=== PATIENT | male | born 1965 | race Caucasian/White ===

== ENCOUNTER → 2017-05-18 | Outpatient (CLI) | payer BC, MEDICARE ==
[2017-05-18 14:08] VITALS: BP 161/102; PULSE 99; RESP 16
--- NOTE | 2017-05-18 14:35 | P.PN ---
Progress Note - Text Progress Note Date: 05/18/17 Patient returns for followup for chronic back pain with radiation to LLE. Patient previously underwent lumbar RFA bilateral in 2016 with excellent relief. He then underwent hip surgery with Dr. Rushing and has had pain from his low back radiating down his left leg but stopping in his calf. Patient continues on no regular medications for pain. Patient denies adverse drug effects from medications. Today, pt denies new-onset weakness, bowel/bladder incontinence, or any other signs or symptoms of cauda equina syndrome. There are no signs of acute intoxication, and no indications of medication diversion or overuse. In addition to above, 13-point review of systems is also negative for chest pain , shortness of breath, changes in vision, changes in hearing, new onset weakness , abdominal pain, diarrhea, extreme fatigue, malaise, fever, skin changes, homicidal or suicidal ideation, or bowel or bladder incontinence. Vital Signs: Reviewed in EMR Gen: WDWN, AAOx3, NAD HEENT: NCAT, EOMI, hearing grossly normal Pulm: resp unlabored Abd: soft, NT, ND Neck: supple, trachea midline ROM in flexion lumbar spine: full ROM in extension lumbar spine: reduced Lumbar paravertebral tenderness: + Facet loading: + L side SI joint tenderness: neg Pedro's test: neg Straight leg raise: + LLE at 15 degrees Neuro: CN II-XII grossly intact, muscle strength lower extremities PRESERVED Imaging: Reviewed in EMR Assessment: 1. hip OA s/p JUAN 2. lumbar radiculitis 3. lumbar spondylosis Plan: 1. Explanation: Opioid and psychological risk scores were reviewed. Diagnoses , prognoses, and multiple treatment options including but not limited to physical therapy, interventional therapies, adjuvant medical therapies, narcotic medication therapies, and surgery were discussed with the patient and all questions were answered to the patient's satisfaction. 2. Opioid agreement: Patient has previously signed narcotic agreement, and was orally counseled to not overuse, abuse, divert, or cell medications, and to take them as prescribed by only 1 healthcare provider. The patient was also counseled to store opioid medications in a safe and preferably locked location. Patient was also counseled against driving or operating heavy equipment while using narcotic medications and also to not use alcohol or any illicit or recreational drugs. The patient verbalized understanding that lack of compliance with any of the above and likely result in failure to renew narcotic prescriptions, possible discharge from the clinic, and possible legal ramifications thereafter if indicated. 3. Counseling: The patient was counseled extensively on BODY MASS INDEX, EXERCISE. Specifically, the patient was instructed regarding the importance of weight control, and exercise in the context of both chronic pain and overall health. 4. Procedures: LESI series (likely L4-L5, but will check MRI) 5. Consultations: None 6. Investigations: MRI lumbar spine without contrast 7. Medications: none prescribed 8. Disposition: f/u for procedure as scheduled PQRS measures: 1-Patient's medications are documented in the chart. 2-Tobacco use is negative 3-Patient has not had a pneumococcal vaccine. 4-Advanced care planning discussed, patient unable to give. 5-Opioid contract NOT signed with the patient. 6-Pain positive, follow-up visit or procedure scheduled 7-Patient's blood pressure measured and documented, and patient will follow up with the primary care due to hypertension. 8-Patient's weight was measured, and body mass index ABOVE the normal limits, and counseling was done. Patient instructed to follow up with PCP. 9-Patient WAS NOT identified as an unhealthy alcohol user.
== END | disposition home or self-care (01) ==
LOC: PNWHC3 13:45
PROVIDERS: ATTEND Anesthesiology
DX: G89.29 Other chronic pain (principal); M47.26 Other spondylosis with radiculopathy, lumbar region; M16.9 Osteoarthritis of hip, unspecified; Z96.649 Presence of unspecified artificial hip joint
CPT/HCPCS: 99211

== ENCOUNTER → 2017-06-03 | Outpatient (CLI) | payer MEDICARE ==
--- NOTE | 2017-06-03 10:23 | MR ---
EXAMINATION TYPE: MR lumbar spine wo con DATE OF EXAM: 06/03/2017 COMPARISON: 04/10/2015 HISTORY: Lumbar radiculopathy TECHNIQUE: T1 and T2 axial and sagittal images of the lumbar spine are submitted. FINDINGS: There is no abnormal signal seen within the visualized spinal cord or paraspinal soft tissu es. At L1-2 there is no disc herniation or canal stenosis. No foraminal encroachment At L2-3 there is mild facet arthropathy. No disc herniation or canal stenosis. No foraminal encroachm ent. At L3-4 there is broad-based central disc bulging with mild effacement of thecal sac. Mild hypertroph ic change of the facets and mild effacement of thecal sac. Bilateral mild foraminal encroachment. At L4-5 there is discogenic marrow changes and degenerative disc disease with broad-based central dis c protrusion resulting in mild to moderate effacement of thecal sac and mild central stenosis. Facet arthropathy and ligamentum flavum hypertrophy contribute. There is mild bilateral foraminal encroachm ent. At L5-S1 there is degenerative disc disease with discogenic marrow changes. Central disc bulging appe ars to be stable and capped by spur. Mild to moderate bilateral foraminal encroachment. Facet arthrop athy noted. IMPRESSION: 1. Multilevel degenerative disc disease with disc protrusion centrally and paracentrally to the right L4-L5 resulting in mild spinal stenosis and bilateral foraminal encroachment. 2. Disc bulging L3-L4 with mild bilateral foraminal encroachment and mild effacement of thecal sac. 3. Stable disc bulging and degenerative disc disease L5-S1 with bilateral foraminal encroachment.
== END | disposition home or self-care (01) ==
LOC: RADMRIMAIN 08:44
PROVIDERS: ATTEND Anesthesiology
DX: M48.061 Spinal stenosis, lumbar region without neurogenic claudication (principal); M51.17 Intervertebral disc disorders with radiculopathy, lumbosacral region
CPT/HCPCS: 72148

== ENCOUNTER 2017-06-16 08:31 | Day surgery (SDC) | payer MEDICARE ==
[2017-06-14 14:46] VITALS: BMI 35.4
[2017-06-16 09:09] VITALS: TEMP 97.6
[2017-06-16 09:16] LABS: Glucose,Whole Blood 148 mg/dL (75-99)
[2017-06-16] MEDS: LACTATED RINGERS 1,000 ML IV SCH ×2 (09:16→09:30)
--- NOTE | 2017-06-16 09:47 | P.PCN ---
Date of Procedure: 06/16/17 Procedure(s) Performed: PREOPERATIVE DIAGNOSIS: 1- Lumbar Degenerative Disc Diseases 2-Lumbar spondylosis with Facet arthropathy without myelopathy. 3-lumbar radiculopathy. POSTOPERATIVE DIAGNOSIS: 1-Lumber Degenerative Disc Diseases 2-Lumbar spondylosis with Facet arthropathy without myelopathy. 3-lumbar radiculopathy. PROCEDURE 1. Lumbar epidural steroid injection under fluoroscopic guidance at the L5-S1 level. 2. Lumbar epidurogram. ANESTHESIA: Local with 1% lidocaine 3 ml and , moderate sedation with intravenous Versed 2 mg ,and fentanyle 50 Mcg EBL: Minimal PROCEDURE INDICATION: The patient with low back pain and radiculitis symptoms unresponsive to conservative treatment. Fluoroscopy was used to optimize visualization of the needle placement and to maximize safety. PROCEDURE DESCRIPTION / TECHNIQUE: The patient was seen and identified in the preoperative area. Risks, benefits , complications including but not limited to infections ,bleeding ,allergic reaction to the medications ,nerve damage and not complete pain releife , and alternatives were discussed with the patient. The patient agreed to proceed with the procedure and signed the consent. IV was started, and vital signs were stable. Patient was taken to the OR and time out was completed. The patient was placed in the prone position on procedure table and a pillow was placed under the abdomen to reduce lumbar lordosis. The lumbosacral area was prepped and draped in the usual sterile fashion.ere closely monitored during the procedure. Conscious sedation was used during the procedure to decrease patients anxiety. Vital signs was monitered during the entire procedure. Using anterior-posterior fluoroscopy, the L5-S1 interlaminar space was identified and the skin over this site was marked and then infiltrated with 1% lidocaine subcutaneously. Subsequently, a 20-gauge Tuohy epidural needle was inserted and advanced toward the epidural space using the ``Loss of resistance technique and guided by AP and lateral fluoroscopy. The correct needle position in the epidural space was verified with the injection of 2 mL of the water soluble contrast dye Omnipaque 180 contrast and observing an excellent epidurogram with the epidural spread of the dye, after negative aspiration for blood and CSF and in the absence of paresthesias. Again after negative aspiration, a 6 ml mixture containing 40 mg of Depomedrol, and 2 ml of preservative free Normal Saline, and 2 ml of preservative free lidocaine 1% solution was injected and a washout of epidurogram was seen. Needle was withdrawn intact, skin was cleansed, and bandages were applied. COMPLICATIONS: None DISPOSITION / PLANS: The patient was placed in a supine position and transferred to the recovery area in a stable condition for observation. There was no evidence of lower extremity motor or sensory deficit after the procedure. Patient was discharged from the recovery room after meeting discharge criteria. Home discharge instructions were given to the patient by the staff. The patient was reexamined prior to discharge. The patient will schedule a follow up in the clinic in 2-4 weeks.
[2017-06-16 09:56] VITALS: RESP 16
--- NOTE | 2017-06-16 10:03 | FL ---
Fluoroscopy INDICATION: Pain FINDINGS: Fluoroscopy time: 7 seconds. Images obtained: 1. IMPRESSIONS: 1. Documentation of fluoroscopy.
[2017-06-16 10:10] VITALS: BP 135/89; PULSE 76
[2017-06-16] MEDS ORDERED: IV FLUID CONTINUATION 1,000 ML IV ONE (10:10)
== END 2017-06-16 10:13 | disposition home or self-care (01) ==
LOC: ORPAIN 08:31
PROVIDERS: ATTEND Specialist
DX: M51.16 Intervertebral disc disorders with radiculopathy, lumbar region (principal); M47.26 Other spondylosis with radiculopathy, lumbar region
CPT/HCPCS: 62323; J2250; J1030; Q9965; J3010

== ENCOUNTER 2017-07-13 08:25 | Day surgery (SDC) | payer MEDICARE ==
[2017-07-08 16:33] VITALS: BMI 35.4
[~2017-07-13 08:25] MED LIST: LACTATED RINGERS 1,000 ML IV SCH
[2017-07-13 09:34] VITALS: RESP 16; TEMP 97.8
[2017-07-13 10:05] LABS: Glucose,Whole Blood 258 mg/dL (75-99)
[2017-07-13] MEDS ORDERED: INSULIN ASPART 100 UNIT/ML 1 ML 10 ML VIAL SQ ONE (10:06)
--- NOTE | 2017-07-13 10:25 | P.PCN ---
Date of Procedure: 07/13/17 Procedure(s) Performed: PREOPERATIVE DIAGNOSIS: 1- Lumbar Degenerative Disc Diseases 2-Lumbar spondylosis with Facet arthropathy without myelopathy POSTOPERATIVE DIAGNOSIS: 1-Lumber Degenerative Disc Diseases 2-Lumbar spondylosis with Facet arthropathy without myelopathy PROCEDURE 1. Lumbar epidural steroid injection under fluoroscopic guidance at the L4-5 level. 2. Lumbar epidurogram. ANESTHESIA: Local with 1% lidocaine 3 ml and , moderate sedation with intravenous Versed 2 mg ,and fentanyle 50 Mcg EBL: Minimal PROCEDURE INDICATION: The patient with low back pain and radiculitis symptoms unresponsive to conservative treatment. Fluoroscopy was used to optimize visualization of the needle placement and to maximize safety. PROCEDURE DESCRIPTION / TECHNIQUE: The patient was seen and identified in the preoperative area. Risks, benefits , complications including but not limited to infections ,bleeding ,allergic reaction to the medications ,nerve damage and not complete pain releife , and alternatives were discussed with the patient. The patient agreed to proceed with the procedure and signed the consent. IV was started, and vital signs were stable. Patient was taken to the OR and time out was completed. The patient was placed in the prone position on procedure table and a pillow was placed under the abdomen to reduce lumbar lordosis. The lumbosacral area was prepped and draped in the usual sterile fashion.ere closely monitored during the procedure. Conscious sedation was used during the procedure to decrease patients anxiety. Vital signs was monitered during the entire procedure. Using anterior-posterior fluoroscopy, the L4-5 interlaminar space was identified and the skin over this site was marked and then infiltrated with 1% lidocaine subcutaneously. Subsequently, a 20-gauge Tuohy epidural needle was inserted and advanced toward the epidural space using the ``Loss of resistance technique and guided by AP and lateral fluoroscopy. The correct needle position in the epidural space was verified with the injection of 2 mL of the water soluble contrast dye Omnipaque 180 contrast and observing an excellent epidurogram with the epidural spread of the dye, after negative aspiration for blood and CSF and in the absence of paresthesias. Again after negative aspiration, a 6 ml mixture containing 40 mg kenalog , and 2 ml of preservative free Normal Saline, and 2 ml of preservative free lidocaine 1% solution was injected and a washout of epidurogram was seen. Needle was withdrawn intact, skin was cleansed, and bandages were applied. COMPLICATIONS: None DISPOSITION / PLANS: The patient was placed in a supine position and transferred to the recovery area in a stable condition for observation. There was no evidence of lower extremity motor or sensory deficit after the procedure. Patient was discharged from the recovery room after meeting discharge criteria. Home discharge instructions were given to the patient by the staff. The patient was reexamined prior to discharge. The patient will schedule a follow up in the clinic in 2-4 weeks.
--- NOTE | 2017-07-13 10:49 | FL ---
EXAMINATION TYPE: FL guided pain mgmt statistic DATE OF EXAM: 07/13/2017 CLINICAL HISTORY: Low back pain. TECHNIQUE: Fluoroscopy. COMPARISON: None. FINDINGS: Fluoroscopic guidance was provided during pain relief procedure performed by Dr. Elam . A total of 3 seconds of fluoroscopic time was utilized during the procedure and 1 spot intraoperat mariana image is acquired. Single image acquired shows needle localization at level of L4-L5 space with contrast injection. IMPRESSION: As Above.
[2017-07-13 11:10] VITALS: PULSE 79
[2017-07-13 11:11] VITALS: BP 130/86
[2017-07-13] MEDS ORDERED: IV FLUID CONTINUATION 1,000 ML IV ONE (11:11)
== END 2017-07-13 11:25 | disposition home or self-care (01) ==
LOC: ORPAIN 08:25
PROVIDERS: ATTEND Specialist
DX: M51.16 Intervertebral disc disorders with radiculopathy, lumbar region (principal); M47.26 Other spondylosis with radiculopathy, lumbar region; I10 Essential (primary) hypertension; J45.909 Unspecified asthma, uncomplicated; E11.9 Type 2 diabetes mellitus without complications
CPT/HCPCS: 62323; J2250; J3301; Q9965; J3010

== ENCOUNTER → 2017-08-16 | Outpatient (CLI) | payer MEDICARE ==
[2017-08-16 13:29] VITALS: BP 142/94; PULSE 104; RESP 18
--- NOTE | 2017-08-16 13:53 | P.PN ---
Progress Note - Text Progress Note Date: 08/16/17 Progress Note - Text Progress Note Date: 05/18/17 Patient returns for followup for chronic back pain with radiation to LLE. Patient previously underwent lumbar RFA bilateral in 2016 with excellent relief. Patient has had minimal relief with lumbar epidural steroid injections , I discussed with him potential doing bilateral transforaminal epidural steroid injections however patient states that when his benefit in the most was the radiofrequency ablations of his lumbar spine. He states that his pain in his lumbar spine was 0-1 out of 10 in severity for greater than 12 months after his bilateral radiofrequency ablation. I discussed with him that since it has been over 2 years since his RFA it would be bilateral medial branch blocks in order to assure that his low back pain is still secondary to facet arthropathy. Patient understands and wishes to proceed in this manner. He still being prescribed Arnot from his primary care doctor. Patient denies adverse drug effects from medications. Today, pt denies new-onset weakness, bowel/bladder incontinence, or any other signs or symptoms of cauda equina syndrome. There are no signs of acute intoxication, and no indications of medication diversion or overuse. In addition to above, 13-point review of systems is also negative for chest pain , shortness of breath, changes in vision, changes in hearing, new onset weakness , abdominal pain, diarrhea, extreme fatigue, malaise, fever, skin changes, homicidal or suicidal ideation, or bowel or bladder incontinence. Vital Signs: Reviewed in EMR Gen: WDWN, AAOx3, NAD HEENT: NCAT, EOMI, hearing grossly normal Pulm: resp unlabored Abd: soft, NT, ND Neck: supple, trachea midline ROM in flexion lumbar spine: Limited secondary to pain ROM in extension lumbar spine: reduced Lumbar paravertebral tenderness: + Facet loading: ++ L side SI joint tenderness: neg Pedro's test: neg Straight leg raise: + LLE at 15 degrees Neuro: CN II-XII grossly intact, muscle strength lower extremities PRESERVED Imaging: Reviewed in EMR Assessment: 1. lumbar radiculopathy 2. lumbar spondylosis without myelopathy Plan: 1. Explanation: Opioid and psychological risk scores were reviewed. Diagnoses , prognoses, and multiple treatment options including but not limited to physical therapy, interventional therapies, adjuvant medical therapies, narcotic medication therapies, and surgery were discussed with the patient and all questions were answered to the patient's satisfaction. 2. Opioid agreement: Patient has previously signed narcotic agreement, and was orally counseled to not overuse, abuse, divert, or cell medications, and to take them as prescribed by only 1 healthcare provider. The patient was also counseled to store opioid medications in a safe and preferably locked location. Patient was also counseled against driving or operating heavy equipment while using narcotic medications and also to not use alcohol or any illicit or recreational drugs. The patient verbalized understanding that lack of compliance with any of the above and likely result in failure to renew narcotic prescriptions, possible discharge from the clinic, and possible legal ramifications thereafter if indicated. 3. Counseling: The patient was counseled extensively on BODY MASS INDEX, EXERCISE. Specifically, the patient was instructed regarding the importance of weight control, and exercise in the context of both chronic pain and overall health. 4. Procedures: Lumbar medial branch block bilateral L3 to S1. In the future consider doing bilateral transforaminal L5-S1 epidural steroid injections. 5. Consultations: None 6. Investigations: Lumbar MRI spine reviewed shows bilateral moderate L5-S1 neuroforaminal stenosis 7. Medications: none prescribed 8. Disposition: Bilateral lumbar medial branch block L3 to S1 PQRS measures: 1-Patient's medications are documented in the chart. 2-Tobacco use is negative 3-Patient has not had a pneumococcal vaccine. 4-Advanced care planning discussed, patient unable to give. 5-Opioid contract NOT signed with the patient. 6-Pain positive, follow-up visit or procedure scheduled 7-Patient's blood pressure measured and documented, and patient will follow up with the primary care due to hypertension. 8-Patient's weight was measured, and body mass index ABOVE the normal limits, and counseling was done. Patient instructed to follow up with PCP. 9-Patient WAS NOT identified as an unhealthy alcohol user.
== END | disposition home or self-care (01) ==
LOC: PNWHC3 12:52
PROVIDERS: ATTEND Anesthesiology
DX: G89.29 Other chronic pain (principal); M54.5 Low back pain; M47.26 Other spondylosis with radiculopathy, lumbar region
CPT/HCPCS: 99211

== ENCOUNTER 2017-08-22 08:56 | Day surgery (SDC) | payer MEDICARE ==
[2017-08-19 10:23] VITALS: BMI 35.4
[2017-08-22 10:47] VITALS: RESP 16; TEMP 97.7
[2017-08-22 10:52] LABS: Glucose,Whole Blood 229 mg/dL (75-99)
[2017-08-22] MEDS ORDERED: INSULIN ASPART 100 UNIT/ML 1 ML 10 ML VIAL SQ ONE (10:57)
--- NOTE | 2017-08-22 12:04 | P.PCN ---
Date of Procedure: 08/22/17 Procedure(s) Performed: PREOPERATIVE DIAGNOSIS : 1- Lumbar spondylosis with Facet Arthropathy without myelopathy . 2- Lumber radiculopathy POSTOPERATIVE DIAGNOSIS: 1- Lumbar spondylosis with Facet Arthropathy without myelopathy . 2- Lumber radiculopathy. PROCEDURE: Diagnostic bilateral L3 -4 , L4 -5 , and L5-S1 medial branch block under fluoroscopy ANESTHESIA: Local with 1% lidocaine 6 ml , moderate sedation with intravenous Versed 1 mg and Fentanyl 50 mcg. EBL: Minimal COMPLICATION: None. IV FLUIDS: 100 mL of normal saline. PROCEDURE INDICATION: Chronic low back pain secondary to Facet arthropathy unresponsive to conservative treatment. PROCEDURE DESCRIPTION: the patient was seen and identified in the preop holding area , risks and benefits and possible complications of the procedure and alternative were discussed with the patient, and the patient agreed to proceed with the procedure and signed the consent IV was started and vital signs monitored during the procedure and fluoroscopy was used to maximize the benefit and accuracy of the needle placement, and sedation was given to decrease patient anxiety, patient was taken to the procedure room and placed in prone position vital signs monitored in the back prepped with chlorhexidine X3 then under strict sterile technique using a right oblique fluoroscopy ,the junction of the transverse process and the superior articulating process of the right L3- 4 , L4- 5, and L5-S1 vertebra which corresponding to the fluoroscopy image of the eye of the Audie dog on the block side for the medial branches and subsequently , after local infiltration of skin and subcu tissuies with lidocaine 1% one mL at each level ,then 22- gauge Quincke-type needles , 3 needle was used , each one of them placed at the junction of the base of the transverse process and the superior articular process at the appropriate level, and the needle was advanced until the periosteum contacted, needle placement confirmed with AP oblique and lateral view and after appropriate needle placement confirmed, and after negative aspiration for heme and CSF and there was no paresthesia 1-1/2 mL of Marcaine 0.5% used , then half mL injected at each level after negative aspiration the needle subsequently removed and the same procedure repeated for the left side at left side at L3-4, L4- 5 and L5-S1 levels. At the end of the procedure and the needles removed and a bandage applied after the skin was cleaned the cleaning solution patient taken to recovery room in stable condition and monitors in the recovery room for 20-30 minutes and discharged home in stable condition after discharge criteria met and patient will follow up with the pain clinic in 2-4 weeks There was no steroid was used , for the procedure today
--- NOTE | 2017-08-22 12:13 | FL ---
EXAMINATION TYPE: FL guided pain mgmt statistic DATE OF EXAM: 08/22/2017 CLINICAL HISTORY: Low back pain. TECHNIQUE: Fluoroscopy. COMPARISON: None. FINDINGS: Fluoroscopic guidance was provided during pain relief procedure performed by Dr. Elam . A total of 7 seconds of fluoroscopic time was utilized during the procedure and 4 spot images are acquired. Images acquired shows needle localization at level of the lower lumbar spine. IMPRESSION: As Above.
[2017-08-22 12:28] LABS: Glucose,Whole Blood 199 mg/dL (75-99)
[2017-08-22 12:39] VITALS: BP 136/85; PULSE 94
[2017-08-22] MEDS ORDERED: IV FLUID CONTINUATION 1,000 ML IV ONE (12:40)
== END 2017-08-22 12:45 | disposition home or self-care (01) ==
LOC: ORPAIN 08:56
PROVIDERS: ATTEND Specialist
DX: M47.816 Spondylosis without myelopathy or radiculopathy, lumbar region (principal); G89.29 Other chronic pain; M47.26 Other spondylosis with radiculopathy, lumbar region; I10 Essential (primary) hypertension; J45.909 Unspecified asthma, uncomplicated; E11.9 Type 2 diabetes mellitus without complications
CPT/HCPCS: 64493; 64494; 64495; J2250; J3010; 99152

== ENCOUNTER 2017-09-13 06:36 | Day surgery (SDC) | payer MEDICARE ==
[2017-09-12 09:00] VITALS: BMI 35.4
[2017-09-13 07:38] LABS: Glucose,Whole Blood 263 mg/dL (75-99)
[2017-09-13 07:41] VITALS: RESP 16; TEMP 97.8
[2017-09-13] MEDS ORDERED: INSULIN ASPART 100 UNIT/ML 1 ML 10 ML VIAL SQ ONE (07:53)
--- NOTE | 2017-09-13 08:24 | P.PCN ---
Date of Procedure: 09/13/17 Procedure(s) Performed: PREOPERATIVE DIAGNOSIS : 1- Lumbar spondylosis with Facet Arthropathy without myelopathy . 2- Lumber degenerative disc disease POSTOPERATIVE DIAGNOSIS: 1- Lumbar spondylosis with Facet Arthropathy without myelopathy . 2- Lumber degenerative disc disease PROCEDURE: Diagnostic bilateral L3 -4 , L4 -5 , and L5-S1 medial branch block under fluoroscopy ANESTHESIA: Local with 1% lidocaine 6 ml , moderate sedation with intravenous Versed 1 mg and Fentanyl 50 mcg. EBL: Minimal COMPLICATION: None. IV FLUIDS: 100 mL of normal saline. PROCEDURE INDICATION: Chronic low back pain secondary to Facet arthropathy unresponsive to conservative treatment. PROCEDURE DESCRIPTION: the patient was seen and identified in the preop holding area , risks and benefits and possible complications of the procedure and alternative were discussed with the patient, and the patient agreed to proceed with the procedure and signed the consent IV was started and vital signs monitored during the procedure and fluoroscopy was used to maximize the benefit and accuracy of the needle placement, and sedation was given to decrease patient anxiety, patient was taken to the procedure room and placed in prone position vital signs monitored in the back prepped with chlorhexidine X3 then under strict sterile technique using a right oblique fluoroscopy ,the junction of the transverse process and the superior articulating process of the right L3- 4 , L4- 5, and L5-S1 vertebra which corresponding to the fluoroscopy image of the eye of the Audie dog on the block side for the medial branches and subsequently , after local infiltration of skin and subcu tissuies with lidocaine 1% one mL at each level ,then 22- gauge Quincke-type needles , 3 needle was used , each one of them placed at the junction of the base of the transverse process and the superior articular process at the appropriate level, and the needle was advanced until the periosteum contacted, needle placement confirmed with AP oblique and lateral view and after appropriate needle placement confirmed, and after negative aspiration for heme and CSF and there was no paresthesia 1-1/2 mL of Marcaine 0.5%used , then half mL injected at each level after negative aspiration the needle subsequently removed and the same procedure repeated for the left side at left side at L3-4, L4- 5 and L5-S1 levels. At the end of the procedure and the needles removed and a bandage applied after the skin was cleaned the cleaning solution patient taken to recovery room in stable condition and monitors in the recovery room for 20-30 minutes and discharged home in stable condition after discharge criteria met and patient will follow up with the pain clinic in 2-4 weeks I did not use any steroid for the procedures .
[2017-09-13] MEDS ORDERED: IV FLUID CONTINUATION 1,000 ML IV ONE (08:32)
--- NOTE | 2017-09-13 08:37 | FL ---
Fluoroscopy HISTORY: Pain 9 seconds fluoroscopy time supplied to the referring clinician. 4 intraoperative C-arm images docume nt the procedure. See dictated report from anesthesia.
[2017-09-13 08:38] LABS: Glucose,Whole Blood 251 mg/dL (75-99)
[2017-09-13 08:57] VITALS: BP 142/87; PULSE 69
== END 2017-09-13 09:08 | disposition home or self-care (01) ==
LOC: ORPAIN 06:36
PROVIDERS: ATTEND Specialist
DX: G89.29 Other chronic pain (principal); M47.816 Spondylosis without myelopathy or radiculopathy, lumbar region; I10 Essential (primary) hypertension; J45.909 Unspecified asthma, uncomplicated; K21.9 Gastro-esophageal reflux disease without esophagitis; E11.9 Type 2 diabetes mellitus without complications
CPT/HCPCS: 64493; 64494; 64495; J2250; J3010; 99152

== ENCOUNTER → 2017-10-18 | Outpatient (CLI) | payer MEDICARE ==
[2017-10-18 12:22] VITALS: BP 162/89; PULSE 102; RESP 16
--- NOTE | 2017-10-18 12:48 | P.PAINPG ---
Subjective Progress Note Date: 10/18/17 This is follow-up visit for this patient with a history of severe and chronic low back pain secondary to lumbar degenerative disc disease, lumbar facet arthropathy, We have done an interventional pain procedure diagnostic medial branch block lumbar area at L3-4 /L4 5/L5-S1 , on 2 different occasions he reported that his pain decreased from 8/10-0-2/10 after each block, and the pain relief lasted for 1-1/2 day after each injection The patient currently on Motrin 800 mg when necessary and Neurontin 100 mg 3 times a day Patient denies any side effect of the medication , patient denies any excessive drowsiness or sleepiness, patient denies any suicidal ideation, Patient reported that the current medication is helping to control the pain and improve the activity of daily livings, Patient denies any motor or sensory deficit, denies any change in the bowel movement or urination, patient denies any fever or night sweats. Objective - Vital Signs Vital signs: Vital Signs Temp Pulse 102 H 10/18/17 12:15 Resp 16 10/18/17 12:15 BP 162/89 10/18/17 12:15 Pulse Ox 98 10/18/17 12:15 Intake & Output 10/17/17 10/18/17 10/18/17 18:59 06:59 18:59 Weight 108.862 kg - Exam Physical Examinations : 1-Constitutiona : Cooperative , not in acute distress . 2-HEENT : nech ; supple , no Lymphadenopathy , normal thyroid size . eyes : no ptosis , no icterus , no photophobia . ENT : normal of hearing , normal oropharynx , no Thrush . 3- Respiratory : Chest clear to auscultations Bilaterally , no wheezing , no Rhonchi . 4- Cardiovascular : regular rate and rhythem , S1 , S2 , no S3 , no S4. 5- Gastrointestinal : abdomen soft no tenderness , bowel sounds , no organomegally . 6- Genitourinary : Defferred . 7- neurologic : Cranial nerve II to XII intact , no focal neurological deffecit . 8-psychatric : alert , oriented X 3 , appropriate affect , intact judgment and insight . 9-Lymphatic : no Lymphadenopathy . 10- musculoskeltal , Lumber spine = normal moter stegnth lower extremities ,thigh and legs .5/5 deep tendon reflexes : normal Knee Jerk , normal ankle Jerk . lumber facet Loading Test positive Assessment and Plan Plan: Assessment and plan= chronic low back pain secondary to lumbar degenerative disc disease , lumbar spondylosis with lumbar facet arthropathy . Patient had more than 70% decrease in his pain level after diagnostic medial branch block lumbar area He will be good candidate to have radiofrequency ablation of medial branch lumbar area and we will start with the radiofrequency ablation of the left- sided L3-4 /L4 5/L5-S1, and later on we will schedule him to have the right side , patient should continue his current medication Motrin 800 mg when necessary and Neurontin 100 mg 3 times a day , and he is getting prescription refills from his primary care Time with Patient: Less than 30 PQRS Measure Charge Sheet Measure #130: Documentation of Current Meds in Medical Chart: Patient's medications documented in chart Measure #226: Tobacco Use: Screen & Cessation Intervention: Pt not a tobacco user Measure #111: Pneumonia Vaccination: Pneumococcal vaccine NOT administered or previously given Measure #47: Advance Care Plan: Advance care planning discussed & documented, plan or surrogate given Measure #412: Opioid Treatment Agreement: No documentation of signed opioid treatment agreement Measure #408: Opioid Therapy Follow-up Evaluation: Patient had NO f/u eval minimum every 3 months during opioid therapy Measure #317: Preventitive Care & Scrn High Bld Press & F/U: Pre-hypertensive or hypertensive BP documented, pt will f/u with PCP Measure #128: Body Mass Index (BMI) Screening & Follow-up: BMI documented ABOVE normal parameters - f/u documented Measure #131: Pain Assessment & Follow-up: Pain positive & plan documented, Follow-up scheduled Measure #431: Unhealthy Alcohol Use Preventative Care & Scrn: Patient not identified as an unhealthy alcohol user PQRS Narrative: Smoking Status Former smoker Blood Pressure 162/89 Pain Intensity [Bilateral 4 Lower Back] Scale Used Numeric (1 - 10) Hx Alcohol Use (MH) Yes: OCCASIONAL. Home Medications: Ambulatory Orders Lisinopril [Zestril] 10 mg PO HS 11/13/13 Atorvastatin [Lipitor] 20 mg PO HS 03/19/15 Escitalopram Oxalate [Lexapro] 10 mg PO DAILY 03/19/15 Omeprazole [PriLOSEC] 20 mg PO AC-BRKFST PRN 03/19/15 Gabapentin [Neurontin] 100 mg PO TID 03/26/15 Ibuprofen [Advil] 800 mg PO DAILY PRN 05/18/17 Albuterol Inhaler [Ventolin Hfa Inhaler] 1 - 2 puff INHALATION Q6HR PRN Fluticasone/Salmeterol [Advair 250-50 Diskus] 1 each IH DAILY PRN 06/14/17 Insulin Glargine [Lantus] 45 unit SQ HS 06/14/17 Controlled Substance Measures - Controlled Substance Measures Is patient prescribed a controlled substance at discharge?: No When asked, does pt state using other controlled substances?: No If prescribed controlled substance>3 days was MAPS reviewed?: No If Rx opioid, was Start Talking consent form obtained?: No If opioid is for acute pain is fill amount 7 days or less?: No Was information provided regarding opioid addiction?: No
== END | disposition home or self-care (01) ==
LOC: PNWHC3 12:01
PROVIDERS: ATTEND Specialist
DX: G89.29 Other chronic pain (principal); M51.36 Other intervertebral disc degeneration, lumbar region; M47.816 Spondylosis without myelopathy or radiculopathy, lumbar region; M46.96 Unspecified inflammatory spondylopathy, lumbar region; Z87.891 Personal history of nicotine dependence; Z79.899 Other long term (current) drug therapy; Z79.1 Long term (current) use of non-steroidal anti-inflammatories (NSAID)
CPT/HCPCS: 99211

== ENCOUNTER 2017-11-08 06:20 | Day surgery (SDC) | payer MEDICARE ==
[2017-11-07 11:52] VITALS: BMI 35.4
[2017-11-08 07:23] VITALS: TEMP 97.6
[2017-11-08] MEDS ORDERED: LIDOCAINE 1% 20 ML VIAL (10MG/ML) FOR IV START INTRADERMA ONE (07:35)
[2017-11-08 07:41] LABS: Glucose,Whole Blood 262 mg/dL (75-99)
--- NOTE | 2017-11-08 08:03 | P.PCN ---
Date of Procedure: 11/08/17 Surgeon: Alex Bojorquez Pathology: none sent Condition: stable Disposition: PACU Description of Procedure: PREOPERATIVE DIAGNOSIS: Lumbar spondylosis without myelopathy, morbid obesity POSTOPERATIVE DIAGNOSIS: Lumbar spondylosis without myelopathy,morbid obesity PROCEDURES : Radiofrequency thermocoagulation,L2-4, L3-L4, L4-L5, and L5-S1 medial branch, with fluoroscopic guidance ANESTHESIA: IV moderate conscious sedation with versed and fentanyl and local infiltration with lidocaine 1% 5 ml EBL: Minimal PROCEDURE INDICATION: The patient with low back pain secondary to lumbar facet arthropathy who had more than 50% relief of her pain with previous diagnostic lumbar medial branch block with bupivacaine. PROCEDURE DESCRIPTION / TECHNIQUE: The patient was seen and identified in the preoperative area. Risks, benefits, complications, including but not limited to risk of infection ,bleeding , allergic reactions to the medications and no complete pain relief , and alternatives were discussed with the patient, the patient agreed to proceed with the procedure and signed the consent. IV was started. Vital signs remained stable throughout the procedure. Patient was taken to the OR and time out was completed. The patient was placed in the prone position on the procedure table. The lumber area was prepped and draped in the usual sterile fashion. . Vital signs were closely monitored during the procedure .IV sedation was used during the procedure to decrease patients anxiety. The target points were identified as follows: For the L5-S1 level which corresponds to the dorsal ramus of L5 the target point was at the superior medial aspect of the sacral ala on the left side of the spine on the AP view of fluoroscopy and for the L2, L3, and L4 medial branches the target points were at the connection between the transverse process and the superior articular process of L3, L4, and L5 vertebra respectively on the left oblique view of fluoroscopy. skin was marked, and localized with 1% lidocaineat these points. Subsequently, an 18 [id number] radiofrequency needles with a 10-mm curved active tips were advanced guided by fluoroscopy to each of the target points mentioned above in a superior medial direction to get the active tips as parallel as possible to the medial branches tracks. AP, oblique, and lateral views of fluoroscopy were used to verify needle tips position. Each level then underwent motor testing at 2.5 Hz and 0 to 3 volt with local stimulation, but no radicular symptoms down the legs. Thereafter radiofrequency thermocoagulation at 80 degrees celsius for 90 seconds after injecting 1 ml of PF Ropivacaine 0.5%(3 mls) with 20 mg of Depomedrol. At the end of the procedure, the skin was cleansed and bandages were applied. COMPLICATIONS: No acute complications. DISPOSITION / PLANS: The patient was placed in a supine position and transferred to the recovery area in a stable condition for observation and was discharged from the recovery room after meeting discharge criteria. Home discharge instructions given to the patient by the staff. The patient was reexamined prior to discharge. The patient will be scheduled for right side RFA in a few weeks.
[2017-11-08] MEDS ORDERED: IV FLUID CONTINUATION 1,000 ML IV ONE (08:16)
--- NOTE | 2017-11-08 08:17 | FL ---
Fluoroscopy HISTORY: Pain 13 seconds fluoroscopy time supplied to the referring clinician. 3 intraoperative C-arm images docum ent the procedure. See dictated report from anesthesia.
[2017-11-08 08:31] VITALS: BP 131/85; PULSE 87; RESP 16
== END 2017-11-08 08:56 | disposition home or self-care (01) ==
LOC: ORPAIN 06:20
PROVIDERS: ATTEND Anesthesiology
DX: M47.816 Spondylosis without myelopathy or radiculopathy, lumbar region (principal); I10 Essential (primary) hypertension; E11.9 Type 2 diabetes mellitus without complications
CPT/HCPCS: 64635; 64636 ×3; J2250; J3301; J3010; 99152

== ENCOUNTER 2017-11-23 07:57 | Day surgery (SDC) | payer MEDICARE ==
[2017-11-22 09:43] VITALS: BMI 35.4
[2017-11-23] MEDS ORDERED: LACTATED RINGERS 1,000 ML IV SCH (08:00)
[2017-11-23 08:30] VITALS: RESP 16; TEMP 97.6
[2017-11-23 08:41] LABS: Glucose,Whole Blood 175 mg/dL (75-99)
--- NOTE | 2017-11-23 09:48 | FL ---
EXAMINATION TYPE: FL guided pain mgmt statistic DATE OF EXAM: 11/23/2017 COMPARISON: NONE HISTORY: Back pain TECHNIQUE: Fluoroscopy. FINDINGS/IMPRESSION: Fluoroscopic guidance was provided during procedure performed by Dr. Pelletier. A total of 3 seconds of fluoroscopic time was utilized during the procedure and 2 spot images was acqu ired demonstrating multilevel localization of the lumbar spine.
[2017-11-23] MEDS ORDERED: IV FLUID CONTINUATION 1,000 ML IV ONE (09:49)
--- NOTE | 2017-11-23 09:54 | P.PCN ---
Date of Procedure: 11/23/17 Surgeon: Chilo Pelletier Description of Procedure: Procedure(s) Performed: PREOPERATIVE DIAGNOSIS: Lumbar spondylosis POSTOPERATIVE DIAGNOSIS: PROCEDURES: Right L3, L4, L5, sacral ala Radiofrequency ablation with fluoroscopic guidance SURGEON: Chilo Pelletier MD. ANESTHESIA: Moderate sedation with intravenous versed 2 mg and fentanyl 100 mcg and local infiltration with lidocaine 1% 4 ml EBL: Minimal PROCEDURE INDICATION: The patient with low back pain secondary to lumbar facet arthropathy who had more than 50% relief of pain with previous diagnostic lumbar medial branch block with bupivacaine. He has undergone radio frequency ablation of the left side reported this gave him good relief of his low back and buttock pain. We will proceed today with radio frequency on the right side. PROCEDURE DESCRIPTION / TECHNIQUE: The patient was seen and identified in the preoperative area. Risks, benefits, complications, including but not limited to risk of infection ,bleeding , allergic reactions to the medications and incomplete pain relief , and alternatives were discussed with the patient, the patient agreed to proceed with the procedure and signed the consent. IV was started. The operative site was marked. Patient was taken to the OR and time out was completed. The patient was placed in the prone position on the procedure table. The lumber area was prepped and draped in the usual sterile fashion. . Vital signs were closely monitored during the procedure .IV sedation was used during the procedure to decrease patients anxiety. Using AP and then oblique fluoroscopy, the ``eye of the Audie dog corresponding to the connection between the superior and transverse articular processes of the above-mentioned levels were identified, marked, and localized with 1% lidocaine. Subsequently, a 20 [id number] radiofrequency cannula with a 10-mm active tip was advanced guided by fluoroscopy to each of the ``eyes of the Audie dog at each site then underwent sensory testing at 50 Hz and 0 to 1 volt and motor testing at 2.5 Hz and 0 to 3 volt with local stimulation, but no radicular symptoms down the legs. Then the sites underwent radiofrequency thermocoagulation at 80 degrees celsius for 90 seconds after injecting 0.5 ml of PF lidocaine 1%. then After the thermocoagulation done , 1 ml of the block solution containing depomedrol 40 mg and 4 ml of marcaine 0.5% was injected in divided doses at each levels after negative aspiration of CSF and blood and with no paresthesias. Sterile dressings were applied. COMPLICATIONS: No acute complications. DISPOSITION / PLANS: The patient was placed in a supine position and transferred to the recovery area in a stable condition for observation and was discharged from the recovery room after meeting discharge criteria. Home discharge instructions given to the patient by the staff. The patient was reexamined prior to discharge. Patient is diabetic. I counseled him on the potential side effects of hyperglycemia from the steroid time putting and prevent neuritis. He will check his sugar and adjust his treatment accordingly.
[2017-11-23 10:15] VITALS: BP 129/87; PULSE 64
[2017-11-23 10:16] LABS: Glucose,Whole Blood 150 mg/dL (75-99)
== END 2017-11-23 10:27 | disposition home or self-care (01) ==
LOC: ORPAIN 07:57
PROVIDERS: ATTEND Pain Medicine Pain Medicine
DX: M47.816 Spondylosis without myelopathy or radiculopathy, lumbar region (principal); E11.9 Type 2 diabetes mellitus without complications
CPT/HCPCS: 64635; 64636 ×2; J2250; J2001; J1030; J3010; 99152

== ENCOUNTER → 2017-12-08 | Outpatient (CLI) | payer MEDICARE ==
[2017-12-08 12:59] VITALS: BP 145/95; PULSE 71; RESP 18
--- NOTE | 2017-12-08 13:19 | P.PN ---
Subjective Progress Note Date: 12/08/17 This is follow-up visit for this patient with a history of severe and chronic low back pain secondary to lumbar spondylosis with facet arthropathy, We have done interventional pain procedures at the frequency ablation of the medial branch lumbar area, patient feels ,very well, his pain improved significantly Patients currently on Motrin 800 mg every 8 hours when necessary and Neurontin Patient denies any side effects of the medication, denies excessive drowsiness or sleepiness, denies suicidal ideation, and reports that the current pain medication is helping to control the pain ,and improve activity of daily living Patient denies any motor or sensory deficit , patient denies any fever or night sweats, denies any change in the bowel movements or urination Physical Examinations : 1-Constitutional : Cooperative , not in acute distress . 2-HEENT : nech ; supple , no Lymphadenopathy , no Thyromegaly , normal thyroid size . eyes : no ptosis , no icterus, no photophobia . ENT : normal of hearing , normal oropharynx , no Thrush . 3- Respiratory : Chest clear to auscultations Bilaterally , no wheezing , no Rhonchi . 4- Cardiovascular : regular rate and rhythem , S1 , S2 , no S3 , no S4. 5- Gastrointestinal : abdomen soft no tenderness , bowel sounds positive all four quadrents , no organomegally . 6- Genitourinary : Defferred . 7- neurologic: Cranial nerve II to XII intact , no focal neurological deffecit . 8- Psychatric: alert , oriented X 3 , appropriate affect , intact judgment and insight . 9- Lymphatic : no Lymphadenopathy . 10- Musculoskeltal : exams of the Lumber spine =motor strength lower extremities ,thigh and legs .5/5 Assessment and plan = Chronic low back pain secondary to lumbar spondylosis with facet arthropathy without myelopathy , pain improved significantly after the radiofrequency ablation of the medial branch lumbar area, he will follow up with the pain clinic on a when necessary basis Objective - Vital Signs Vital signs: Vital Signs Temp Pulse 71 12/08/17 12:52 Resp 18 12/08/17 12:52 BP 145/95 12/08/17 12:52 Pulse Ox 99 12/08/17 12:52 Intake & Output 12/07/17 12/08/17 12/08/17 18:59 06:59 18:59 Weight 108.862 kg
== END | disposition home or self-care (01) ==
LOC: PNWHC3 12:32
PROVIDERS: ATTEND Specialist
DX: G89.29 Other chronic pain (principal); M47.816 Spondylosis without myelopathy or radiculopathy, lumbar region; M46.96 Unspecified inflammatory spondylopathy, lumbar region
CPT/HCPCS: 99211

== ENCOUNTER → 2018-04-04 | Outpatient (CLI) | payer MEDICARE ==
[2018-04-04 14:16] VITALS: BP 131/70; PULSE 86; RESP 16
--- NOTE | 2018-04-04 15:01 | P.PN ---
Subjective Progress Note Date: 04/04/18 This is a 52-year-old gentleman with history of lower back pain and left hip pain. The patient had left total hip replacement but with continuing left hip pain. Orthopedic surgeon thinks that there is nothing abnormal and then joint itself. The patient had lumbar medial branch RFA in our clinic lately which helped his lower back pain significantly. His complaint today is mostly left hip pain in the lateral aspect of the hip. Using tramadol and Motrin has also helped control his hip pain however the patient would like to come off these medications if possible and he is asking for an injection to be done on the area. Today, pt denies new-onset weakness, bowel/bladder incontinence, or any other signs or symptoms of cauda equina syndrome. There are no signs of acute intoxication, and no indications of medication diversion or overuse. In addition to above, 13-point review of systems is also negative for chest pain , shortness of breath, changes in vision, changes in hearing, new onset weakness , abdominal pain, diarrhea, extreme fatigue, malaise, fever, skin changes, homicidal or suicidal ideation, or bowel or bladder incontinence. Vital Signs: Reviewed in EMR Gen: AAOx3, NAD HEENT: PERRLA,hearing grossly normal Pulm: resp unlabored,CTA Heart:S1,S2, No Mur Neck: supple, trachea midline The patient has tenderness in the left upper femoral the quadratus muscle and around the head on the left femur prosthesis Neuro: CN II-XII grossly intact, Imaging: Reviewed in EMR/chart Assessment: Lumbar spondylosis without myelopathy Lateral left hip pain status post total hip replacement Plan: 1. Explanation: Opioid and psychological risk scores were reviewed. Diagnoses , prognoses, and multiple treatment options including but not limited to physical therapy, interventional therapies, adjuvant medical therapies, narcotic medication therapies, and surgery were discussed with the patient and all questions were answered to the patient's satisfaction. 2. Opioid agreement: Signed with the patient and the patient is warned not to use opioids while driving or before driving and not to combine opioids with benzodiazepines or alcohol. 3. Counseling: The patient was counseled extensively on SMOKING CESSATION, BODY MASS INDEX, EXERCISE. Specifically, the patient was instructed regarding the importance of smoking cessation, obesity, and exercise in the context of both chronic pain and overall health. 4. Procedures: Schedule for trigger point injection in the upper lateral area of the femoral quadratus muscle 5. Consultations: None 6. Investigations: None 7. Medications: Continue tramadol twice a day and Motrin 800 mg twice a day for now and I will give him one refill 8. Disposition: Return to the above-mentioned procedure and to the clinic in 2 months 9. Maps were reviewed and were appropriate. PQRS measures: 1-Patient's medications are documented in the chart. 2-Tobacco use is negative, counseling given 3-Patient has not had a pneumococcal vaccine. 4-Advanced care planning discussed, patient unable to give 5-Opioid contract signed with the patient. 6-Pain positive, follow-up visit or procedure scheduled 7-Patient's blood pressure measured and documented within normal limits. 8-Patient's weight was measured, and body mass index ABOVE the normal limits, and counseling was done. Patient instructed to follow up with PCP. 9-Patient WAS NOT identified as an unhealthy alcohol user. Objective - Vital Signs Vital signs: Vital Signs Temp Pulse 86 04/04/18 14:09 Resp 16 04/04/18 14:09 BP 131/70 04/04/18 14:09 Pulse Ox 95 04/04/18 14:09 Intake & Output 04/03/18 04/04/18 04/04/18 18:59 06:59 18:59 Weight 108.862 kg
== END | disposition home or self-care (01) ==
LOC: PNWHC3 13:51
PROVIDERS: ATTEND Anesthesiology
DX: M47.816 Spondylosis without myelopathy or radiculopathy, lumbar region (principal); M25.552 Pain in left hip; Z79.891 Long term (current) use of opiate analgesic; Z96.642 Presence of left artificial hip joint; Z79.1 Long term (current) use of non-steroidal anti-inflammatories (NSAID)
CPT/HCPCS: 99211

== ENCOUNTER 2018-04-27 09:23 | Day surgery (SDC) | payer MEDICARE ==
[2018-04-20 15:19] VITALS: BMI 35.4
[~2018-04-27 09:23] MED LIST changes: -LACTATED RINGERS 1,000 ML IV SCH; +SODIUM CHLORIDE 0.9% 500 ML 500 ML IV SCH
[2018-04-27 10:02] VITALS: RESP 16; TEMP 97
[2018-04-27 10:04] LABS: Glucose,Whole Blood 247 mg/dL (75-99)
[2018-04-27] MEDS ORDERED: LACTATED RINGERS 1,000 ML IV ONE (10:04)
[2018-04-27] MEDS ORDERED: LIDOCAINE 1% 20 ML VIAL (10MG/ML) FOR IV START INTRADERMA ONE (10:05)
--- NOTE | 2018-04-27 11:12 | P.PCN ---
Date of Procedure: 04/27/18 Procedure(s) Performed: Pre OP diagnoses= left trochanteric bursitis . Postoperative diagnosis= left trochanteric bursitis. Operation= Left trochanteric bursa steroid injection . Anesthesia= none . Complications= none . Description of the procedure= patient had history of severe low back pain and left hip pain secondary to left trochanteric bursitis for this reason patient was a good candidate to have left trochanteric bursa injection which hopefully it will help his pain, risks and benefits of the procedure including but not limited to risk of infection and bleeding and not complete pain relief and ALLERGIC reaction to medication discussed with the patient and the alternative also discussed with the patient and he agreed with the preceding , patient taken to the operating room placed in supine position , standard monitors applied patient ,the hip area prepped with chlorhexidine 3 times, and under sterile technique using 25-gauge needle for skin and subcutaneous tissue infiltration was first admitted the left trochanteric bursa injection , and placed in the left trochanteric bursa ,then 5 ML of Ropivacaine 0.5% injected after negative aspiration for heme and there was no CSF and there was no paresthesia during the injection and needle removed and a dressing applied ,and he will follow up with the pain clinic in a few weeks and patient discharged home in stable condition I did not use any steroid today, because patient had history of diabetes, and his blood sugar is 248
[2018-04-27] MEDS ORDERED: IV FLUID CONTINUATION 1,000 ML IV ONE (11:19)
[2018-04-27 11:26] VITALS: BP 104/68; PULSE 77
== END 2018-04-27 11:40 | disposition home or self-care (01) ==
LOC: ORPAIN 09:23
PROVIDERS: ATTEND Specialist
DX: M70.62 Trochanteric bursitis, left hip (principal); I10 Essential (primary) hypertension; J45.909 Unspecified asthma, uncomplicated; M47.816 Spondylosis without myelopathy or radiculopathy, lumbar region; M79.18 Myalgia, other site; E11.9 Type 2 diabetes mellitus without complications
CPT/HCPCS: 20610

== ENCOUNTER 2018-05-11 07:09 | Day surgery (SDC) | payer MEDICARE ==
[2018-05-09 14:30] VITALS: BMI 35.4
[2018-05-11] MEDS ORDERED: SODIUM CHLORIDE 0.9% 500 ML 500 ML IV SCH (07:13)
[2018-05-11 07:21] LABS: Glucose,Whole Blood 302 mg/dL (75-99)
[2018-05-11 07:23] VITALS: TEMP 97.9
--- NOTE | 2018-05-11 08:07 | P.PCN ---
Date of Procedure: 05/11/18 Procedure(s) Performed: Pre OP diagnoses= Left trochanteric bursitis . Postoperative diagnosis= left trochanteric bursitis. Operation= left trochanteric bursa injection under fluoroscopy guidance. Anesthesia= only local infiltration with lidocaine 1% 2 mL .(NO IV sedation ) Complications= none . Description of the procedure= patient had history of severe low back pain and hip pain secondary to trochanteric bursitis for this reason patient was a good candidate to have left trochanteric bursa injection which hopefully it will help his pain, risks and benefits of the procedure including but not limited to risk of infection and bleeding and not complete pain relief and ALLERGIC reaction to medication discussed with the patient and the alternative also discussed with the patient and he agreed with the preceding taken to the operating room placed in prone position or standard monitors applied patient and after induction of anesthesia the back and the left hip area prepped with chlorhexidine 3 times, and under sterile technique using 25-gauge needle for skin and subcutaneous tissue infiltration was first admitted the right trochanteric bursa injection at 22-gauge Quincke-type spinal needle advanced slowly under fluoroscopy and placed in the left trochanteric bursa needle placement confirmed with AP and lateral view and after appropriate needle placement confirmed under fluoroscopy 5 ML of Ropivacaine 0.5% injected after negative aspiration for heme and there was no CSF and there was no paresthesia during the injection and needle removed and a dressing applied , patient tolerated the procedure well without any complication and she will follow up with the pain clinic in a few weeks and patient discharged home in stable condition Steroid was not used today because patient blood sugar is 302 ,and there was concern about if he give any steroid could make patient at risk of DKA
[2018-05-11 08:13] VITALS: BP 126/82; PULSE 75; RESP 16
--- NOTE | 2018-05-11 08:38 | FL ---
EXAMINATION TYPE: FL guided pain mgmt statistic DATE OF EXAM: 05/11/2018 FLUOROSCOPY Fluoroscopy time of 2 seconds was used during left trochanteric bursal injection. 1 image/s document /s the procedure.
== END 2018-05-11 08:21 | disposition home or self-care (01) ==
LOC: ORPAIN 07:09
PROVIDERS: ATTEND Specialist
DX: M70.62 Trochanteric bursitis, left hip (principal); E11.9 Type 2 diabetes mellitus without complications; I10 Essential (primary) hypertension
CPT/HCPCS: 20610; 20611

== ENCOUNTER → 2018-06-14 | Outpatient (CLI) | payer MEDICARE ==
[2018-06-14 10:58] VITALS: BP 154/82; PULSE 86; RESP 16
--- NOTE | 2018-06-14 13:00 | P.PAINPG ---
Subjective Progress Note Date: 06/14/18 Principal diagnosis: right hip bursitis This a very pleasant 52-year-old gentleman with a history of left-sided trochanteric bursitis. He is undergone previous hip replacement. He reports that he has been doing better in the recent past. He attributes this mainly to the anti-inflammatory medication he is taking. He does not believe that the trochanteric bursa injection he received was very helpful for him. Objective - Vital Signs Vital signs: Vital Signs Temp Pulse 86 06/14/18 10:53 Resp 16 06/14/18 10:53 BP 154/82 06/14/18 10:53 Pulse Ox 96 06/14/18 10:53 Intake & Output 06/13/18 06/14/18 06/14/18 18:59 06:59 18:59 Weight 108.862 kg - Exam General: The patient is alert and oriented. Patient is not sedated Patient answers all question appropriately. Cardiac: Heart is regular in rate and rhythm Respiratory: Clear to auscultation. No audible wheezes. Abdomen: Soft nontender nondistended. protuberant Musculoskeletal: Strength is normal bilaterally. Sensation is normal bilaterally. Straight leg raise is negative bilaterally. he is not very tender to palpation over his trochanteric bursa bilaterally. Neurological: Reflexes are preserved and symmetric bilaterally. Assessment and Plan (1) Trochanteric bursitis Narrative/Plan: Plan of Care 1. Medications: Patient should continue to manage his situation with conservative medications such as Tylenol and occasional anti-inflammatory medications. I will give him a prescription for Motrin 800 to be used. I have advised him on the risks and benefits of this medicine. 2. Interventions: We will hold off on further injections at this time. We will reassess this at his next appointment. 3. Referrals: Patient's encouraged to join a gym impact his state in water activities. 4. Testing: None 5. Follow-up: 2 months Current Visit: Yes Status: Acute Code(s): M70.60 - TROCHANTERIC BURSITIS, UNSPECIFIED HIP SNOMED Code(s): 5216173 (2) Status post left hip replacement Current Visit: No Status: Acute Code(s): Z96.642 - PRESENCE OF LEFT ARTIFICIAL HIP JOINT SNOMED Code(s): 019939250 PQRS Measure Charge Sheet Measure #130: Documentation of Current Meds in Medical Chart: Patient's medications documented in chart Measure #226: Tobacco Use: Screen & Cessation Intervention: Pt not a tobacco user Measure #111: Pneumonia Vaccination: Pneumococcal vaccine NOT administered or previously given Measure #47: Advance Care Plan: Advance care planning discussed & documented, pt chose/unable to give Measure #412: Opioid Treatment Agreement: No documentation of signed opioid treatment agreement Measure #408: Opioid Therapy Follow-up Evaluation: Patient had NO f/u eval minimum every 3 months during opioid therapy Measure #317: Preventitive Care & Scrn High Bld Press & F/U: Normal blood pressure, f/u not required Measure #128: Body Mass Index (BMI) Screening & Follow-up: BMI documented ABOVE normal parameters - f/u documented Measure #131: Pain Assessment & Follow-up: Pain positive & plan documented Measure #431: Unhealthy Alcohol Use Preventative Care & Scrn: Patient not identified as an unhealthy alcohol user PQRS Narrative: Smoking Status Former smoker Narcotic Agreement Date Signed 04/04/18 Blood Pressure 154/82 Pain Intensity [Left Hip] 3 Scale Used Numeric (1 - 10) Hx Alcohol Use (MH) Yes: OCCASIONAL. Home Medications: Ambulatory Orders Lisinopril [Zestril] 10 mg PO HS 11/13/13 Atorvastatin [Lipitor] 20 mg PO HS 03/19/15 Escitalopram Oxalate [Lexapro] 10 mg PO HS 03/19/15 Omeprazole [PriLOSEC] 20 mg PO AC-BRKFST PRN 03/19/15 Gabapentin [Neurontin] 100 mg PO TID 03/26/15 Ibuprofen [Advil] 800 mg PO DAILY PRN 05/18/17 Albuterol Inhaler [Ventolin Hfa Inhaler] 1 - 2 puff INHALATION Q6HR PRN Fluticasone/Salmeterol [Advair 250-50 Diskus] 1 each IH DAILY PRN 06/14/17 Insulin Glargine [Lantus] 60 unit SQ HS 06/14/17 Controlled Substance Measures - Controlled Substance Measures Is patient prescribed a controlled substance at discharge?: No
== END | disposition home or self-care (01) ==
LOC: PNWHC3 10:42
PROVIDERS: ATTEND Pain Medicine Pain Medicine
DX: M70.62 Trochanteric bursitis, left hip (principal); Z79.1 Long term (current) use of non-steroidal anti-inflammatories (NSAID); Z79.891 Long term (current) use of opiate analgesic; Z96.642 Presence of left artificial hip joint; Z87.891 Personal history of nicotine dependence; Z79.899 Other long term (current) drug therapy
CPT/HCPCS: 99211

== ENCOUNTER → 2018-07-05 | Outpatient (CLI) | payer MEDICARE ==
[2018-07-05 13:51] VITALS: BP 124/80; PULSE 75; RESP 18
--- NOTE | 2018-07-06 06:30 | P.PN ---
Subjective Progress Note Date: 07/05/18 This is follow-up visit for this patient with a history of severe and chronic low back pain secondary to lumbar spondylosis with facet arthropathy, We have done interventional pain procedures at the frequency ablation of the medial branch lumbar area, the low back pain improved significantly, patients continue to have severe left hip pain, we have done a left trochanteric bursa steroid injection, patient had short-term benefit from it pain is constant and increases with any hip movement Radiated into the lateral aspect of his left thigh , pain intensity interfering with the quality of life, patient had left total hip replacement done a few years ago, patient saw Dr. Rushing orthopedic surgeon, and he told the patient that the implant looked good and there is no problem with the hip Patients currently on Motrin 800 mg every 8 hours when necessary and Neurontin 100 mg twice a day, Ultram 50 mg twice a day Patient denies any side effects of the medication, denies excessive drowsiness or sleepiness, denies suicidal ideation, Patient denies any motor or sensory deficit , patient denies any fever or night sweats, denies any change in the bowel movements or urination Physical Examinations : 1-Constitutional : Cooperative , not in acute distress . 2-HEENT : nech ; supple , no Lymphadenopathy , no Thyromegaly , normal thyroid size . eyes : no ptosis , no icterus, no photophobia . ENT : normal of hearing , normal oropharynx , no Thrush . 3- Respiratory : Chest clear to auscultations Bilaterally , no wheezing , no Rhonchi . 4- Cardiovascular : regular rate and rhythem , S1 , S2 , no S3 , no S4. 5- Gastrointestinal : abdomen soft no tenderness , bowel sounds positive all four quadrents , no organomegally . 6- Genitourinary : Defferred . 7- neurologic: Cranial nerve II to XII intact , no focal neurological deffecit . 8- Psychatric: alert , oriented X 3 , appropriate affect , intact judgment and insight . 9- Lymphatic : no Lymphadenopathy . 10- Musculoskeltal : exams of the Lumber spine =motor strength lower extremities ,thigh and legs .5/5 Exam of the left hip area= severe tenderness over the left trochanteric bursa, Left hip incision healed appropriately there is, no erythema and no discharge, and there is no swelling ,and no sign of infection Straight leg raising test negative. left hip joints ,full range of motion Assessment and plan = Chronic low back pain secondary to lumbar spondylosis with facet arthropathy without myelopathy , pain improved significantly after the radiofrequency ablation of the medial branch lumbar area, left hip pain secondary to left trochanteric bursitis, patient could benefit from Motrin 800 mg every 8 hours, and prescription for Ultram 50 mg every 12 hours dispense 60 Continue Neurontin 100 mg twice a day, patient could benefit from Voltaren gel 1.3% apply twice to the left hip area Discussed with the patient and the risk of opioid and side effects of opioid discussed with the patient including but not limited to, addiction, tolerance ,and constipation. Patient signed narcotic agreement. Interventions=none (patient had short-term benefit from left trochanteric bursa steroid injection ), he will follow up in the pain clinic in 3 months - PQRS measures = - Patient's medications are documented in the chart. -Tobacco use is positive, and counseling.Given. -Patient's has not received pneumococcal vaccine. -Advanced care planning discussed, patient not eligible. -Opiate contract signed. -Pain positive and follow-up visit/procedure is scheduled. -Patient's blood pressure measured [124/80 ] , and documented in the record ,and patient will follow up with the primary care. -Patient's weight was measured and body mass index [ 32.5 ] above the,within the normal limits and counseling was done. and patient instructed to follow-up with the primary care physician. -Patient was not identified as an unhealthy alcohol user Objective - Vital Signs Vital signs: Vital Signs Temp Pulse 75 07/05/18 13:39 Resp 18 07/05/18 13:39 BP 124/80 07/05/18 13:39 Pulse Ox 97 07/05/18 13:39 Intake & Output 07/05/18 07/05/18 07/06/18 06:59 18:59 06:59 Weight 99.79 kg
== END ==
LOC: PNWHC3 12:44
PROVIDERS: ATTEND Specialist
DX: G89.29 Other chronic pain (principal); M47.816 Spondylosis without myelopathy or radiculopathy, lumbar region; M46.96 Unspecified inflammatory spondylopathy, lumbar region; M25.552 Pain in left hip; M70.62 Trochanteric bursitis, left hip; Z79.891 Long term (current) use of opiate analgesic; Z79.899 Other long term (current) drug therapy
CPT/HCPCS: 99211

== ENCOUNTER → 2018-09-27 | Outpatient (CLI) | payer MEDICARE ==
[2018-09-27 11:17] VITALS: BP 119/78; PULSE 78; RESP 16
--- NOTE | 2018-09-27 11:57 | P.PN ---
Subjective Progress Note Date: 09/27/18 Jonathan presents today for follow-up. He continues to have left sided hip pain and numbness and tingling in the left leg. He is a chronic history of left hip pain and has had a total hip replaced about 3 years ago. He reports his pain is about the same that it was before the surgery. At this point he uses only as needed Ultram about one or 2 tablets a week, uses Motrin as needed, and a using 100 mg of gabapentin 2 times per day. He denies any side effects from the medication and reports that he is comfortable. He reports that the numbness is starting to bother him a little bit more he interested in increasing the dose. Denies any significant weakness in the leg, denies any bowel or bladder in continence or any low back or neck pain. Objective - Vital Signs Vital signs: Vital Signs Temp Pulse 78 09/27/18 11:08 Resp 16 09/27/18 11:08 BP 119/78 09/27/18 11:08 Pulse Ox 97 09/27/18 11:08 Intake & Output 09/26/18 09/27/18 09/27/18 18:59 06:59 18:59 Weight 100.698 kg - Exam PHYSICAL EXAM: Constitutional: Awake and alert no distress Cardiovascular exam: Regular rate, no lower extremity edema, palpable pulses bilaterally Respiratory exam: No audible wheezing, no accessory muscle usage Abdominal exam: Soft nontender Muscular skeletal exam: - Cervical spine: Nontender to palpation bilaterally. Range of motion is not limited. Spurling is negative bilateral. Facet loading is negative bilaterally - Lumbar spine: Preserved lumbar lordosis. No changes in skin. Nontender palpation bilateral. Patient has full range of motion in flexion and extension as well as lateral sidebending. Straight leg raise is negative. Left hip: There is limited range of motion with internal rotation of the hip. External Rotation is normal, flexion of the hip is normal. Extension is slightly limited. There is no tenderness to palpation. Neuro exam: Normal sensation bilateral upper and lower extremities. Deep tendon reflexes are 2+ bilaterally. Amado's is negative Psychiatric exam: Cooperative, good insight Assessment and Plan Assessment: Chronic hip pain Hip osteoarthritis Plan: On today's visit I will increase his gabapentin to 300 mg 2 times per day and give him 2 refills on the medication. He reports he does not need any refills on the Motrin or the Ultram. He will give us a call if he runs out what the next 3 months and we will be able to call in the prescription for him. Patient follow-up in 12 weeks' time
== END ==
LOC: PNWHC3 10:56
PROVIDERS: ATTEND Hospitalist
DX: G89.29 Other chronic pain (principal); M25.559 Pain in unspecified hip; M16.10 Unilateral primary osteoarthritis, unspecified hip; Z79.899 Other long term (current) drug therapy
CPT/HCPCS: 99211

== ENCOUNTER → 2018-12-20 | Outpatient (CLI) | payer MEDICARE ==
[2018-12-20 12:57] VITALS: BP 119/74; PULSE 89; RESP 18
--- NOTE | 2018-12-20 20:27 | P.PAINPG ---
Subjective Progress Note Date: 12/20/18 This is follow-up visit for this patient with a history of severe and chronic low back pain secondary to lumbar spondylosis with facet arthropathy, left trochanteric bursitis We have done interventional pain procedures at the frequency ablation of the medial branch lumbar area, and left trochanteric bursa steroid injection Currently is complaining of severe low back pain and left hip area ,and the p[ain Radiated into the lateral aspect of his left thigh , pain intensity interfering with the quality of life, patient had left total hip replacement done a few years ago, patient saw Dr. Rushing orthopedic surgeon, and he told the patient that the implant looked good and there is no problem with the hip Patients currently on Motrin 800 mg every 8 hours when necessary and Neurontin 300 mg twice a day on the Ultram 50 mg twice a day when necessary Patient denies any side effects of the medication, denies excessive drowsiness or sleepiness, denies suicidal ideation, Patient denies any motor or sensory deficit , patient denies any fever or night sweats, denies any change in the bowel movements or urination Objective - Vital Signs Vital signs: Vital Signs Temp Pulse 89 12/20/18 12:51 Resp 18 12/20/18 12:51 BP 119/74 12/20/18 12:51 Pulse Ox Intake & Output 12/20/18 12/20/18 12/21/18 06:59 18:59 06:59 Weight 103.419 kg - Exam Physical Examinations : -Constitutiona : Cooperative , not in acute distress . -HEENT : nech : supple , no Lymphadenopathy , normal t hyroid size . eyes : no ptosis , no icterus, no photophobia . ENT : normal of hearing , normal oropharynx , no Thrush . - Respiratory : Chest clear to auscultations Bilaterally , no wheezing , no Rhonchi . - Cardiovascula : regular rate and rhythem , S1 , S2 , no S3 , no S4. - Gastrointestina : abdomen soft no tenderness , bowel sounds , no organomegally . - Genitourinary : Defferred . - neurologic : Cranial nerve II to XII intact , no focal neurological deffecit . -psychatric : alert , oriented X 3 , appropriate affect , intact judgment and insight . -Lymphatic : no Lymphadenopathy . - musculoskeltal : Lumber spine moter stegnth lower extremities ,thigh and legs 5/5 Right side , 5/5 Left side deep tendon reflexes : normal Knee Jerk , normal ankle Jerk Negative lumber facet Loading Test Range of motion of the lumbar spine Flexion 60 degrees, extensin 30 strait leg raising test = negative bilaterally Fabere test = negative bilaterally Severe tenderness over the left trochanteric bursa, Left hip area incision healed appropriately there is no erythema ,and no discharge ,no redness Assessment and Plan Plan: Assessment and plan= chronic low back pain secondary to left trochanteric bursitis, lumbar spondylosis with lumbar facet arthropathy . chronic and current use of high-risk medication (opioids) Patient denies any side effects of the current pain medication and the current treatment/medication helping the patient to do activity of daily living , Diagnoses, prognosis, treatment options, including but not limited to physical therapy, medication management, interventional therapies, and surgery, were discussed with the patient All the questions answered The narcotic consent was signed and patient agreed and understood the side effects and complications of opioid treatment. Patient signed the narcotic agreement, and was orally counseled, not to overuse, not to abuse, not to Divert , not tp sell pain medication, and to take it as prescribed only, Patient was counseled not to drive or operate heavy equipment while using narcotic medication, and advised not to use alcohol or any Illicit drugs while using the narcotis. understanding that lack of compliance with any of the above instructions, will likely to cause discharge from, the pain service, not to renew his narcotic prescriptions MAPS Reviwed and it was apropriate . Medication managements= patient will be given prescription refills for Neurontin 300 mg twice a day dispense 60 with 1 refill Ultram 50 mg twice a day dispense 60 with one refill Motrin 800 mg twice a day. When necessary. Interventions= patient could benefit from repeat left trochanteric bursa steroid injections under fluoroscopy guidance , Time with Patient: Less than 30 PQRS Measure Charge Sheet Measure #130: Documentation of Current Meds in Medical Chart: Patient's medications documented in chart Measure #226: Tobacco Use: Screen & Cessation Intervention: Pt screened for tobacco use AND intervention given Measure #111: Pneumonia Vaccination: Pneumococcal vaccine NOT administered or previously given Measure #47: Advance Care Plan: Advance care planning discussed & documented, pt chose/unable to give Measure #412: Opioid Treatment Agreement: Documented signed opioid trtmnt agreemnt min once during opioid trtmnt Measure #408: Opioid Therapy Follow-up Evaluation: Patient had f/u eval minimum every 3 months during opioid therapy Measure #317: Preventitive Care & Scrn High Bld Press & F/U: Normal blood pressure, f/u not required Measure #128: Body Mass Index (BMI) Screening & Follow-up: BMI documented ABOVE normal parameters - f/u documented Measure #131: Pain Assessment & Follow-up: Pain positive & plan documented, Follow-up scheduled Measure #431: Unhealthy Alcohol Use Preventative Care & Scrn: Patient not identified as an unhealthy alcohol user PQRS Narrative: Smoking Status Former smoker Narcotic Agreement Date Signed 04/04/18 Blood Pressure 119/74 Pain Intensity [Left Hip] 5 Scale Used Numeric (1 - 10) Hx Alcohol Use (MH) Yes: OCCASIONAL. Home Medications: Ambulatory Orders Lisinopril [Zestril] 10 mg PO HS 11/13/13 Atorvastatin [Lipitor] 20 mg PO HS 03/19/15 Escitalopram Oxalate [Lexapro] 10 mg PO HS 03/19/15 Omeprazole [PriLOSEC] 20 mg PO AC-BRKFST PRN 03/19/15 Albuterol Inhaler [Ventolin Hfa Inhaler] 1 - 2 puff INHALATION Q6HR PRN 06/14/17 Fluticasone/Salmeterol [Advair 250-50 Diskus] 1 each IH DAILY PRN 06/14/17 Insulin Glargine [Lantus] 90 unit SQ HS 06/14/17 Ibuprofen [Motrin] 1 tab PO BID PRN 07/05/18 traMADol HCl [Ultram] 1 tab PO BID PRN 07/05/18 Gabapentin [Neurontin] 300 mg PO BID 09/27/18 Controlled Substance Measures - Controlled Substance Measures Is patient prescribed a controlled substance at discharge?: Yes When asked, does pt state using other controlled substances?: No If prescribed controlled substance>3 days was MAPS reviewed?: Yes If Rx opioid, was Start Talking consent form obtained?: Yes If opioid is for acute pain is fill amount 7 days or less?: No Was information provided regarding opioid addiction?: Yes
== END | disposition home or self-care (01) ==
LOC: PNWHC3 12:21
PROVIDERS: ATTEND Specialist
DX: G89.29 Other chronic pain (principal); M47.816 Spondylosis without myelopathy or radiculopathy, lumbar region; M46.96 Unspecified inflammatory spondylopathy, lumbar region; M70.62 Trochanteric bursitis, left hip; Z87.891 Personal history of nicotine dependence; Z96.642 Presence of left artificial hip joint; Z98.890 Other specified postprocedural states; Z79.891 Long term (current) use of opiate analgesic; Z79.4 Long term (current) use of insulin; Z79.899 Other long term (current) drug therapy
CPT/HCPCS: 99211

== ENCOUNTER 2019-01-03 05:57 | Day surgery (SDC) | payer MEDICARE ==
[2019-01-02 10:35] VITALS: BMI 36.6
[2019-01-03 06:18] VITALS: RESP 16; TEMP 97.7
[2019-01-03 07:01] LABS: Glucose,Whole Blood 149 mg/dL (75-99)
[2019-01-03 07:19] VITALS: BP 112/69; PULSE 73
[2019-01-03] MEDS ORDERED: LACTATED RINGERS 1,000 ML IV SCH (07:45)
--- NOTE | 2019-01-03 08:24 | FL ---
EXAMINATION TYPE: FL guided pain mgmt statistic DATE OF EXAM: 01/03/2019 FLUOROSCOPY Fluoroscopy time of 1 seconds was used during left trochanteric bursal injection. 1 image/s document /s the procedure.
--- NOTE | 2019-01-03 11:43 | P.PN ---
Progress Note - Text Progress Note Date: 01/03/19 Preoperative diagnoses= left trochanteric bursitis . Postoperative diagnosis= same Procedure= left trochanteric bursa steroid injection under fluoroscopy guidance. Anesthesia= none Complications= none . Indication for procedure= this a 53-year-old gentleman with history of left trochanteric bursitis who presents today for left trochanteric bursa injection Procedure in Detail: After potentialrisks and benefits of the procedure were discussed, patient signed an informed consent was transported to the procedure suite. They're positioned supine position. The area over the left trochanteric bursa was prepped and draped in usual sterile fashion. The fluoroscope was used to identify the greater trochanter. Local anesthetic was applied to skin subcu taste tissue lateral to this anatomic location. A 25-gauge 3-1/2 inch needle was then advanced through the skin and subcu tissue until it contacted the surface of the greater trochanter. Needle was then withdrawn 1 mm. After negative aspiration, a solution containing 3 mL of 0.5% bupivicaine and 40 mg of Depo-Medrol was injected. The needle was then withdrawn. A sterile dressing was applied to the injection site. The patient was then transported to the recovery room in stable condition. There were monitored and then discharged home. Follow-up: For reevaluation in the pain clinic approximate 4 weeks
== END 2019-01-03 07:32 | disposition home or self-care (01) ==
LOC: ORPAIN 05:57
PROVIDERS: ATTEND Pain Medicine Pain Medicine
DX: G89.29 Other chronic pain (principal); M70.62 Trochanteric bursitis, left hip; M47.9 Spondylosis, unspecified; Z87.891 Personal history of nicotine dependence; Z79.1 Long term (current) use of non-steroidal anti-inflammatories (NSAID); Z79.891 Long term (current) use of opiate analgesic; Z79.899 Other long term (current) drug therapy
CPT/HCPCS: 20610; 77002; J1030

== ENCOUNTER → 2019-02-14 | Outpatient (CLI) | payer MEDICARE ==
[2019-02-14 11:23] VITALS: BP 126/77; PULSE 76; RESP 16
--- NOTE | 2019-02-15 08:32 | P.PAINPG ---
Subjective Progress Note Date: 02/14/19 This is follow-up visit for this patient with a history of severe and chronic low back pain secondary to lumbar spondylosis with facet arthropathy, left trochanteric bursitis We have done interventional pain procedures at the frequency ablation of the medial branch lumbar area, and left trochanteric bursa steroid injection ,recently we have done a left trochanteric bursa steroid injection which only for 2 weeks Currently is complaining of severe low back pain and left hip area ,and the pain Radiated into the lateral aspect of his left thigh , pain intensity interfering with the quality of life, patient had left total hip replacement done a few years ago, patient saw Dr. Rushing orthopedic surgeon, and he told the patient that the implant looked good and there is no problem with the hip Patients currently on Motrin 800 mg every 8 hours when necessary and Neurontin 300 mg twice a day on the Ultram 50 mg twice a day when necessary Patient denies any side effects of the medication, denies excessive drowsiness or sleepiness, denies suicidal ideation, Patient denies any motor or sensory deficit , patient denies any fever or night sweats, denies any change in the bowel movements or urination, patient here for medication refill Objective - Vital Signs Vital signs: Vital Signs Temp Pulse 76 02/14/19 11:17 Resp 16 02/14/19 11:17 BP 126/77 02/14/19 11:17 Pulse Ox 96 02/14/19 11:17 - Exam Physical Examinations : -Constitutiona : Cooperative , not in acute distress . -HEENT : nech : supple , no Lymphadenopathy , normal thyroid size . eyes : no ptosis , no icterus, no photophobia . - neurologic : Cranial nerve II to XII intact , no focal neurological deffecit . -psychatric : alert , oriented X 3 , appropriate affect , intact judgment and insight . -Lymphatic : no Lymphadenopathy . - musculoskeltal : Lumber spine moter stegnth lower extremities ,thigh and legs 5/5 Right side , 5/5 Left side deep tendon reflexes : normal Knee Jerk , normal ankle Jerk positive lumber facet Loading Test Range of motion of the lumbar spine Flexion 30 degrees, extension 10 degrees strait leg raising test , positive at 30 degree Fabere test positive RT and positive LT . Sever tenderness over the left trochanteric bursa Assessment and Plan Plan: Assessment and plan= chronic low back pain secondary to left trochanteric bursitis , lumbar spondylosis with lumbar facet arthropathy . chronic and current use of high-risk medication (opioids) Patient denies any side effects of the current pain medication and the current treatment/medication helping the patient to do activity of daily living , Diagnoses, prognosis, treatment options, including but not limited to physical therapy, medication management, interventional therapies, and surgery, were discussed with the patient All the questions answered The narcotic consent was signed and patient agreed and understood the side effects and complications of opioid treatment. Patient signed the narcotic agreement, and was orally counseled, not to overuse, not to abuse, not to Divert , not tp sell pain medication, and to take it as prescribed only, Patient was counseled not to drive or operate heavy equipment while using narcotic medication, and advised not to use alcohol or any Illicit drugs while using the narcotis. understanding that lack of compliance with any of the above instructions, will likely to cause discharge from, the pain service, not to renew his narcotic prescriptions MAPS Reviwed and it was apropriate . Medication managements= patient will be given prescription refills for Ultram 50 mg twice a day dispense 60 with one refill Motrin 800 mg twice a day dispense 60 with one refill Neurontin 300 mg twice a day dispense 60 with 1 refill Will follow up in the pain clinic in 2 months. Interventions=none , Time with Patient: Less than 30 PQRS Measure Charge Sheet Measure #130: Documentation of Current Meds in Medical Chart: Patient's medications documented in chart Measure #226: Tobacco Use: Screen & Cessation Intervention: Pt not a tobacco user Measure #111: Pneumonia Vaccination: Pneumococcal vaccine administered or previously received Measure #47: Advance Care Plan: Advance care planning discussed & documented, pt chose/unable to give Measure #412: Opioid Treatment Agreement: Documented signed opioid trtmnt agreemnt min once during opioid trtmnt Measure #408: Opioid Therapy Follow-up Evaluation: Patient had f/u eval minimum every 3 months during opioid therapy Measure #317: Preventitive Care & Scrn High Bld Press & F/U: Normal blood pressure, f/u not required Measure #128: Body Mass Index (BMI) Screening & Follow-up: BMI documented ABOVE normal parameters - f/u documented Measure #131: Pain Assessment & Follow-up: Pain positive & plan documented, Follow-up scheduled Measure #431: Unhealthy Alcohol Use Preventative Care & Scrn: Patient not identified as an unhealthy alcohol user PQRS Narrative: Smoking Status Former smoker Narcotic Agreement Date Signed 04/04/18 Blood Pressure 126/77 Pain Intensity [Left Hip] 8 Scale Used Numeric (1 - 10) Hx Alcohol Use (MH) Yes: OCCASIONAL. Home Medications: Ambulatory Orders Lisinopril [Zestril] 10 mg PO HS 11/13/13 Atorvastatin [Lipitor] 20 mg PO HS 03/19/15 Escitalopram Oxalate [Lexapro] 10 mg PO HS 03/19/15 Omeprazole [PriLOSEC] 20 mg PO AC-BRKFST PRN 03/19/15 Albuterol Inhaler [Ventolin Hfa Inhaler] 1 - 2 puff INHALATION Q6HR PRN 06/14/17 Fluticasone/Salmeterol [Advair 250-50 Diskus] 1 each IH DAILY PRN 06/14/17 Insulin Glargine [Lantus] 90 unit SQ HS 06/14/17 Gabapentin [Neurontin] 300 mg PO BID #60 cap 02/14/19 Ibuprofen [Motrin] 1 tab PO BID PRN #60 tab 02/14/19 traMADol HCl [Ultram] 1 tab PO BID PRN #60 tab 02/14/19 Controlled Substance Measures - Controlled Substance Measures Is patient prescribed a controlled substance at discharge?: Yes When asked, does pt state using other controlled substances?: No If prescribed controlled substance>3 days was MAPS reviewed?: Yes If Rx opioid, was Start Talking consent form obtained?: Yes If opioid is for acute pain is fill amount 7 days or less?: No Was information provided regarding opioid addiction?: Yes
== END | disposition home or self-care (01) ==
LOC: PNWHC3 10:53
PROVIDERS: ATTEND Specialist
DX: G89.29 Other chronic pain (principal); M70.62 Trochanteric bursitis, left hip; M47.816 Spondylosis without myelopathy or radiculopathy, lumbar region; M46.96 Unspecified inflammatory spondylopathy, lumbar region; Z79.891 Long term (current) use of opiate analgesic; Z87.891 Personal history of nicotine dependence; Z79.899 Other long term (current) drug therapy; Z79.4 Long term (current) use of insulin; Z79.1 Long term (current) use of non-steroidal anti-inflammatories (NSAID)
CPT/HCPCS: 99211

== ENCOUNTER 2021-01-31 22:27 | Inpatient (IN) | payer MEDICARE, OTHER ==
--- NOTE | 2021-01-31 22:52 | ED ---
Recheck HPI - General Chief Complaint: Back Pain/Injury Stated Complaint: Fall Time Seen by Provider: 01/31/21 22:40 Source: EMS, RN notes reviewed, old records reviewed Mode of arrival: EMS Limitations: no limitations - History of Present Illness Initial Comments: This is a 55-year-old male to the emergency room today. Patient resents today for evaluation of severe back pain after fall. We except patient transferred for surgical evaluation regarding new lumbar spine fracture he has an L2 burst fracture. Patient's pain is well-controlled he is able to ambulate has no neurological findings. Patient otherwise has no complaints fall was mechanical in nature with no headache chest pain shortness breath or abdominal pain MD Complaint: other (Lumbar spine fracture evaluation) -: hour(s) Returns Today for: persistent/worsening pain related to initial visit Symptoms Since Prior Visit: worsening pain Associated Symptoms: other (Back pain) Treatments Prior to Arrival: Given Pain Meds on - Related Data Home Medications Medication Instructions Recorded Confirmed lisinopriL [Zestril] 10 mg PO HS 11/13/13 02/07/19 Atorvastatin [Lipitor] 20 mg PO HS 03/19/15 02/07/19 Escitalopram Oxalate [Lexapro] 10 mg PO HS 03/19/15 02/07/19 Omeprazole [PriLOSEC] 20 mg PO AC-BRKFST PRN 03/19/15 02/07/19 Albuterol Inhaler (Mhu) [Ventolin 1 - 2 puff INHALATION Q6HR PRN 06/14/17 02/07/19 Hfa Inhaler] Fluticasone/Salmeterol [Advair 1 each IH DAILY PRN 06/14/17 02/07/19 250-50 Diskus] Insulin Glargine [Lantus] 90 unit SQ HS 06/14/17 02/07/19 Previous Rx's Medication Instructions Recorded Gabapentin [Neurontin] 300 mg PO BID #60 cap 02/14/19 Ibuprofen [Motrin] 1 tab PO BID PRN #60 tab 02/14/19 traMADol HCl [Ultram] 1 tab PO BID PRN #60 tab 02/14/19 Allergies Allergy/AdvReac Type Severity Reaction Status Date / Time No Known Allergies Allergy Verified 01/31/21 22:44 Review of Systems ROS Statement: Those systems with pertinent positive or pertinent negative responses have been documented in the HPI. ROS Other: All systems not noted in ROS Statement are negative. Past Medical History Past Medical History: Asthma, Diabetes Mellitus, GERD/Reflux, Hypertension, Osteoarthritis (OA), Rheumatoid Arthritis (RA) Additional Past Medical History / Comment(s): sarcoidosis, migraines at times he gets left sided facial numbness. History of Any Multi-Drug Resistant Organisms: None Reported Past Surgical History: Cholecystectomy, Joint Replacement, Orthopedic Surgery Additional Past Surgical History / Comment(s): left hand surgery after crushing injury, lt hip replacement, [facility] Past Anesthesia/Blood Transfusion Reactions: No Reported Reaction Additional Past Anesthesia/Blood Transfusion Reaction / Comment(s): denies any hx of problems with anesthesia Past Psychological History: Anxiety Past Alcohol Use History: Occasional Past Drug Use History: None Reported - Past Family History Father Family Medical History: Cancer Additional Family Medical History / Comment(s): hodgkins Mother Family Medical History: Cancer Additional Family Medical History / Comment(s): leukemia General Exam Limitations: no limitations General appearance: alert, in no apparent distress Head exam: Present: atraumatic, normocephalic, normal inspection Eye exam: Present: normal appearance, PERRL, EOMI. Absent: scleral icterus, conjunctival injection, periorbital swelling ENT exam: Present: normal exam, mucous membranes moist Neck exam: Present: normal inspection. Absent: tenderness, meningismus, lymphadenopathy Respiratory exam: Present: normal lung sounds bilaterally. Absent: respiratory distress, wheezes, rales, rhonchi, stridor Cardiovascular Exam: Present: regular rate, normal rhythm, normal heart sounds. Absent: systolic murmur, diastolic murmur, rubs, gallop, clicks GI/Abdominal exam: Present: soft, normal bowel sounds. Absent: distended, tenderness, guarding, rebound, rigid Extremities exam: Present: normal inspection, full ROM, normal capillary refill. Absent: tenderness, pedal edema, joint swelling, calf tenderness Back exam: Present: normal inspection Neurological exam: Present: alert, oriented X3, CN II-XII intact Psychiatric exam: Present: normal affect, normal mood Skin exam: Present: warm, dry, intact, normal color. Absent: rash Course Vital Signs 01/31/21 22:35 Temperature 98.7 F Pulse Rate 84 Respiratory 18 Rate Blood Pressure 148/82 O2 Sat by Pulse 97 Oximetry - Reevaluation(s) Reevaluation #1: 02/01/21 00:25 Medical record is reviewed 02/01/21 00:25 Transfer paperwork is reviewed Reevaluation #2: 02/01/21 00:25 Patient informed results and questions answered - Consultations Consultation #1: Spoke with sound who will admit the patient also spoke with orthopedics web content developer who will see this patient Medical Decision Making - Medical Decision Making 55 male to the ER with fall and a lumbar 2 burst fracture. Patient admitted for pain control symptom therapy, orthopedic evaluation Disposition Clinical Impression: Fall, Lumbar burst fracture, Back pain Disposition: ADMITTED IP TO THIS HOSP Condition: Good Is patient prescribed a controlled substance at d/c from ED?: No
[2021-01-31] MEDS ORDERED: ONDANSETRON 4 MG/2 ML VIAL IVP PRN (23:06)
[2021-01-31] MEDS ORDERED: MORPHINE SULFATE 4 MG/ML SYRINGE IV PRN (23:06)
[2021-01-31] MEDS ORDERED: KETOROLAC 15 MG/ML 1 ML VIAL IVP STA (23:06)
[2021-01-31] MEDS ORDERED: ACETAMINOPHEN TAB 325 MG TAB PO PRN (23:06)
[2021-01-31] MEDS ORDERED: NALOXONE 0.4 MG/ML 1 ML VIAL IV PRN (23:06)
[2021-01-31] MEDS ORDERED: ACETAMINOPHEN TAB 500 MG TAB PO STA (23:07)
[2021-02-01] MEDS ORDERED: SYMBICORT 80-4.5 MCG INHALER INHALATION PRN (01:29)
[2021-02-01] MEDS ORDERED: PANTOPRAZOLE 40 MG TABLET PO PRN (01:29)
[2021-02-01] MEDS ORDERED: IPRATROPIUM-ALBUTEROL 3 ML NEB INHALATION PRN (01:32)
--- NOTE | 2021-02-01 01:36 | P.HPIM ---
History of Present Illness H&P Date: 01/31/21 Chief Complaint: Fall back pain 55-year-old male with hypertension diabetes mellitus hyperlipidemia sarcoidosis Patient comes in transfer from another facility for orthopedic evaluation he sustained a mechanical fall hurt his back no head injury no loss of consciousness however he was having severe back pain after the accident still he drove back home Complaining of back pain denies any focal neuro deficits he has history of peripheral neuropathy from diabetes denies any saddle numbness or paresthesia denies any urinary incontinence constipation or stool incontinence. However he noticed that he was urinating more than usual. Denies loss of consciousness denies head injury. He went to the other facility for evaluation he was diagnosed with breast of 2 fracture for which she was transferred to a facility for evaluation. Urine analysis at the other facility was negative no evidence of acute infection. Patient denies any smoking denies any drug abuse denies any alcohol use on daily basis Review of Systems Pertinent positives as noted in HPI. All other systems were reviewed and are negative Past Medical History Past Medical History: Asthma, Diabetes Mellitus, GERD/Reflux, Hypertension, Osteoarthritis (OA), Rheumatoid Arthritis (RA) Additional Past Medical History / Comment(s): sarcoidosis, migraines at times he gets left sided facial numbness. History of Any Multi-Drug Resistant Organisms: None Reported Past Surgical History: Cholecystectomy, Joint Replacement, Orthopedic Surgery Additional Past Surgical History / Comment(s): left hand surgery after crushing injury, lt hip replacement, [facility] Past Anesthesia/Blood Transfusion Reactions: No Reported Reaction Additional Past Anesthesia/Blood Transfusion Reaction / Comment(s): denies any hx of problems with anesthesia Past Psychological History: Anxiety Past Alcohol Use History: Occasional Past Drug Use History: None Reported - Past Family History Father Family Medical History: Cancer Additional Family Medical History / Comment(s): hodgkins Mother Family Medical History: Cancer Additional Family Medical History / Comment(s): leukemia Medications and Allergies Home Medications Medication Instructions Recorded Confirmed Type lisinopriL [Zestril] 10 mg PO HS 11/13/13 02/07/19 History Atorvastatin [Lipitor] 20 mg PO HS 03/19/15 02/07/19 History Escitalopram Oxalate [Lexapro] 10 mg PO HS 03/19/15 02/07/19 History Omeprazole [PriLOSEC] 20 mg PO AC-BRKFST PRN 03/19/15 02/07/19 History Albuterol Inhaler (Mhu) [Ventolin 1 - 2 puff INHALATION Q6HR PRN 06/14/17 02/07/19 History Hfa Inhaler] Fluticasone/Salmeterol [Advair 1 each IH DAILY PRN 06/14/17 02/07/19 History 250-50 Diskus] Insulin Glargine [Lantus] 90 unit SQ HS 06/14/17 02/07/19 History Gabapentin [Neurontin] 300 mg PO BID #60 cap 02/14/19 Rx Ibuprofen [Motrin] 1 tab PO BID PRN #60 tab 02/14/19 Rx traMADol HCl [Ultram] 1 tab PO BID PRN #60 tab 02/14/19 Rx Allergies Allergy/AdvReac Type Severity Reaction Status Date / Time No Known Allergies Allergy Verified 01/31/21 22:44 Physical Exam Vitals: Vital Signs Temp Pulse Resp BP Pulse Ox 01/31/21 22:35 98.7 F 84 18 148/82 97 Intake and Output 01/31/21 01/31/21 02/01/21 14:59 22:59 06:59 Other: Weight 102.058 kg Constitutional: No acute distress, conversant, pleasant Eyes: Anicteric sclerae, moist conjunctiva, Pupils equal round reactive to light ENMT: NC/AT Oropharynx clear, no erythema, or exudates Neck: Supple, FROM, no masses, or JVD No carotid bruits No thyromegaly Lungs: Clear to auscultation Clear to percussion Normal respiratory effort, no accessory muscle use Cardiovascular: Heart regular in rate and rhythm, No murmurs, gallops, or rubs No peripheral edema Abdominal: Soft Nontender, no guarding, rebound or rigidity Abdomen moving with respiration Normoactive bowel sounds No hepatomegaly, No splenomegaly No palpable mass No abdominal wall hernia noted Skin: Normal temperature, tone, texture, turgor No induration No subcutaneous nodules No rash, lesions No ulcers Extremities: Back exam unremarkable focal tenderness over L2 area no bruising no ecchymosis no swelling No digital cyanosis No clubbing Pedal pulses intact and symmetrical Radial pulses intact and symmetrical No calf tenderness Psychiatric: Alert and oriented to person, place and time Appropriate affect fair judgement Neuro Muscles Strength 4/5 in all 4 extremities Sensation to light touch grossly present throughout Cranial nerves II-XII grossly intact No focal sensory deficits Lymphatics: no palpable cervical or supraclavicular , or inguinal lymph nodes Assessment and Plan Assessment: Acute burst fracture of L2 vertebra secondary to mechanical accidental Pain control Neurochecks Orthopedic evaluation Chronic conditions Diabetes mellitus insulin-dependent, check A1c Insulin sliding scale Hypertension resume home blood pressure medications Currently blood pressure controlled Hyperlipidemia resume statin History of asthma and sarcoidosis Resume inhalers DVT prophylaxis mechanical Anticipated length of stay less than 2 midnights Anticipated discharge home
[2021-02-01 07:11] LABS: Basophils % (A) 1 %; Eosinophils # (A) 0.2 k/uL (0-0.7); Eosinophils % (A) 4 %; HCT 45.4 % (39.0-53.0); HGB 15.7 gm/dL (13.0-17.5); Lymphocytes # (A) 0.5 k/uL (1.0-4.8); Lymphocytes % (A) 10 %; MCH 30.5 pg (25.0-35.0); MCHC 34.6 g/dL (31.0-37.0); Mean Platelet Volume 8.9; Monocytes # (A) 0.5 k/uL (0-1.0); Monocytes % (A) 10 %; Neutrophils # (A) 3.7 k/uL (1.3-7.7); Neutrophils % (A) 73 %; RBC 5.16 m/uL (4.30-5.90); WBC 5.1 k/uL (3.8-10.6)
[2021-02-01 07:28] LABS: ALT 36 U/L (4-49); AST 29 U/L (17-59); African American GFR (CKD) >90 (>60 ml/min/1.73 sqM); Alkaline Phosphatase 106 U/L (38-126); Anion Gap 8 mmol/L; Blood Urea Nitrogen 18 mg/dL (9-20); Calcium 8.9 mg/dL (8.4-10.2); Carbon Dioxide 25 mmol/L (22-30); Chloride 107 mmol/L (98-107); Glucose 82 mg/dL (74-99); Non-African American GFR(CKD) 88 (>60 ml/min/1.73 sqM); Potassium 3.7 mmol/L (3.5-5.1); Sodium 140 mmol/L (137-145); Total Bilirubin 1.7 mg/dL (0.2-1.3); Total Protein 6.8 g/dL (6.3-8.2)
[2021-02-01 07:29] LABS: INR 1.1 (<1.2); Prothrombin Time 11.2 sec (9.0-12.0)
[2021-02-01] MEDS ORDERED: INSULIN ASPART (NovoLOG) 100 UNIT/ML VIAL SQ SCH (07:30)
[2021-02-01 08:12] VITALS: TEMP 96.6
[2021-02-01 08:17] LABS: Platelet Count 56 k/uL (150-450)
[2021-02-01] MEDS ORDERED: MORPHINE SULFATE 2 MG/ML SYRINGE IV PRN (08:18)
[2021-02-01] MEDS: SODIUM CHLORIDE 0.9% 1,000 ML IV SCH ×2 (08:19)
[2021-02-01 08:34] LABS: Glucose,Whole Blood 68 mg/dL (75-99)
[2021-02-01 08:46] LABS: Glucose,Whole Blood 89 mg/dL (75-99)
[2021-02-01] MEDS ORDERED: GABAPENTIN 300 MG CAP PO SCH (09:00)
[2021-02-01] MEDS ORDERED: HYDROcodone/APAP 7.5-325MG 1 EACH TAB PO ONE (11:09)
--- NOTE | 2021-02-01 11:17 | P.CNOR ---
History of Present Illness - HPI Consult date: 02/01/21 Consult reason: low back pain History of present illness: Patient is a 55-year-old male who presented to [facility] after having an acute injury to his lower back. He was found to have a L2 burst fracture after sustaining a fall off the bed of a truck onto his backside. He was able get up and ambulate around at the scene but was having persistent pain in his back and presented to the emergency room where he was found have an L2 burst fracture. He was not having any neurologic change. He denies any loss of consciousness. Denies any changes in bowel bladder function. Denies any weakness in his lower extremity's. The pain is primarily located at his lower back and off to the right. His history is spondylosis at his low back and history of chronic low back pain for which she has undergone treatment and interventional pain management and injections in 2019. He says it has been relatively stable since that time. He denies any new neurologic changes. The patient does not work he says he has been on disability for the past several years due to his hand and arthritis in his back. Currently he feels though he is able to move around. He denies any changes in bowel bladder function. He says he can get up though he has to do so quite slowly. He says he feels comfortable getting up to get to the bathroom as long as he moves slowly. Review of Systems As stated per HPI. Denies loss of consciousness. Denies any chest pain shortness breath. Denies any neck pain. Denies any abdominal pain. Has any nausea or vomiting. Denies any changes in bowel bladder function. Past Medical History Past Medical History: Asthma, Diabetes Mellitus, GERD/Reflux, Hypertension, Osteoarthritis (OA), Rheumatoid Arthritis (RA) Additional Past Medical History / Comment(s): Patient on disability for several years apparently due to multiple surgeries of his left hand and arthritis of his low back and hip. sarcoidosis, migraines at times he gets left sided facial numbness. History of Any Multi-Drug Resistant Organisms: None Reported Past Surgical History: Cholecystectomy, Joint Replacement, Orthopedic Surgery Additional Past Surgical History / Comment(s): left hand surgery after crushing injury, lt hip replacement, [facility] Past Anesthesia/Blood Transfusion Reactions: No Reported Reaction Additional Past Anesthesia/Blood Transfusion Reaction / Comm: denies any hx of problems with anesthesia Past Psychological History: Anxiety Past Alcohol Use History: Occasional Past Drug Use History: None Reported - Past Family History Father Family Medical History: Cancer Additional Family Medical History / Comment(s): hodgkins Mother Family Medical History: Cancer Additional Family Medical History / Comment(s): leukemia Medications and Allergies Home Medications Medication Instructions Recorded Confirmed Type lisinopriL [Zestril] 10 mg PO DAILY 11/13/13 02/01/21 History Fluticasone/Salmeterol [Advair 1 puff INHALATION RT-BID PRN 06/14/17 02/01/21 History 250-50 Diskus] Albuterol Inhaler [Ventolin Hfa 2 puff INHALATION RT-QID PRN 02/01/21 02/01/21 History Inhaler] Atorvastatin Calcium [Lipitor] 40 mg PO HS 02/01/21 02/01/21 History Celecoxib [CeleBREX] 200 mg PO DAILY 02/01/21 02/01/21 History Dapagliflozin Propanediol [Farxiga] 10 mg PO DAILY 02/01/21 02/01/21 History Desvenlafaxine Succinate [Pristiq] 100 mg PO DAILY 02/01/21 02/01/21 History Insulin Glargine,Hum.rec.anlog 120 unit SQ HS 02/01/21 02/01/21 History [Basaglar Kwikpen U-100] Pentoxifylline [TRENtal] 400 mg PO AC-TID PRN 02/01/21 02/01/21 History tiZANidine [Zanaflex] 8 mg PO HS 02/01/21 02/01/21 History Allergies Allergy/AdvReac Type Severity Reaction Status Date / Time No Known Allergies Allergy Verified 02/01/21 08:46 Physical Examination Osteopathic Statement: *. No significant issues noted on an osteopathic structural exam other than those noted in the History and Physical/Consult. - C Spine: dermatomal strength & reflexes bilateral Shoulder strength: flexion: 5/5 (No pain at his neck. Good range of motion in his neck. His upper extremities have good active passive range of motion. He has some chronic changes left hand due to a history of injury) - L Spine: dermatomal strength & reflexes bilateral Strength: hip flexion: 5/5 (His lower back has no open wounds lacerations or abrasions. There is no significant swelling or ecchymosis. He has some tenderness at the right paraspinals at his mid lumbar spine. His lower extremities have 5 out of 5 dorsi flexion plantar flexion and EHL intact. 5 out of 5 knee flexion and ext) Strength: hip extension: 5/5 (5 out of 5 knee flexion and extension. No pain with interelectrode rotation of his hips) Results - Labs Labs: Abnormal Lab Results - Last 24 Hours (Table) 02/01/21 02/01/21 02/01/21 Range/Units 06:35 06:35 08:13 Plt Count 56 L (150-450) k/uL Lymphocytes # 0.5 L (1.0-4.8) k/uL POC Glucose (mg/dL) 68 L (75-99) mg/dL Total Bilirubin 1.7 H (0.2-1.3) mg/dL H & H 02/01/21 Range/Units 06:35 Hgb 15.7 (13.0-17.5) gm/dL Hct 45.4 (39.0-53.0) % Coagulation 02/01/21 Range/Units 06:35 INR 1.1 (<1.2) Result Diagrams: 02/01/21 06:35 02/01/21 06:35 - Diagnostic results CT Scan - lumbar: report reviewed (Some osteophytic spurring at the thoracic lumbar junction. This facet arthrosis L4 5 and L5-S1. Some disc degeneration and mild foraminal stenosis. There is an old MRI of his lumbar spine from 2018 which does not have evidence of the fracture.), image reviewed (Computed tomography scan lumbar spine from [facility] was performed. I was able to review the images and report. There is an L2 burst-type fracture with about 15% compression deformity. There is no retropulsion. There is significant disc degeneration the mid lumbar spine. Some osteophyte spurrin) Assessment and Plan Assessment: Acute low back pain due to acute L2 traumatic burst fracture without neurologic compromise Chronic low back pain Neurologically intact Status post fall Plan: Acute low back pain due to acute L2 traumatic burst fracture without neurologic compromise Chronic low back pain Neurologically intact Status post fall The patient is a new fracture at L2 level without bony retropulsion or neurologic change. The fracture pattern and overall has some relative stability for a compression burst fracture and he can do well with conservative treatment. He is actually able to move around today in the emergency room and feels that he can get up and around to the bathroom and up for meals adequately. I think we can try to treat him with an LSO brace. We will order this for him. It is difficult to get brace on Tuesday in this hospital and she could potentially go home to obtain a brace tomorrow as an outpatient. I'll plan on ordering an aspirin LSO brace or equivalent to use whenever he is out of bed and mobile. He does not need to use the brace while he is in bed or when he is bathing. I discussed this injury and the treatment with him at length. We also discussed possibility of vertebral kyphoplasty versus the possibility of lumbar instrumented fusion for stability of the fracture. Given the pattern of the fracture and his lack of neurologic change we will likely be able to treat this conservatively for now. We could consider kyphoplasty on an outpatient basis if he is not progress. I think it is okay for him to go home potentially today if he is comfortable and obtain a brace as an outpatient tomorrow from my office or from the durable medical equipment location. If he is not having benefit we can consider further intervention and will follow them closely. He is also continue his general medical care with his primary care physician.
[2021-02-01 12:49] LABS: Glucose,Whole Blood 102 mg/dL (75-99)
--- NOTE | 2021-02-01 13:17 | P.DS ---
Providers Date of admission: 01/31/21 23:06 Expected date of discharge: 02/01/21 Attending physician: Prudence Marsh MD Consults: 01/31/21 23:06 Consult Physician Routine Consulting Provider: Krishna Díaz Consult Reason/Comments: L2Fx Do you want consulting provider notified?: Yes Primary care physician: Robe Seaman MD Hospital Course: This is a 55-year-old male with past medical history significant for essential hypertension, type 2 diabetes, and hyperlipidemia that presented to the emergency room after he sustained a mechanical fall and was having back pain. Patient was evaluated at an outside facility and was found to have an acute L2 burst fracture without neurologic compromise. Patient was transferred to our hospital and was seen and evaluated by orthopedic surgery. No immediate intervention recommended. Options of treatment including conservative management versus kyphoplasty and can be done as an outpatient was discussed. Patient was cleared for discharge home. His pain was tolerable. He will follow-up with orthopedic in the office on Tuesday to obtain accurate brace. He will be discharged home in a stable condition. General: The patient is awake and alert, in no distress Eye: there is normal conjunctiva bilaterally. Neck: The neck is supple, there is no JVD. Cardiovascular: Normal S1-S2, no S3-S4, no murmurs. Respiratory: Lungs clear to auscultation bilaterally Gastrointestinal: Abdomen is soft, nontender Musculoskeletal: There is no pedal edema. Neurological:. Speech is normal. Skin: Skin is warm and dry Patient Condition at Discharge: Good Plan - Discharge Summary New Discharge Prescriptions: New HYDROcodone/APAP 5-325MG [[place] 5] 1 each PO Q8HR PRN #21 tab PRN Reason: Pain HYDROcodone/APAP 5-325MG [[place] 5-325] 1 tab PO Q8HR PRN 3 Days #21 tab PRN Reason: Pain Continue lisinopriL [Zestril] 10 mg PO DAILY Fluticasone/Salmeterol [Advair 250-50 Diskus] 1 puff INHALATION RT-BID PRN PRN Reason: Shortness Of Breath tiZANidine [Zanaflex] 8 mg PO HS Desvenlafaxine Succinate [Pristiq] 100 mg PO DAILY Celecoxib [CeleBREX] 200 mg PO DAILY Insulin Glargine,Hum.rec.anlog [Mookie Hayes U-100] 120 unit SQ HS Atorvastatin Calcium [Lipitor] 40 mg PO HS Pentoxifylline [TRENtal] 400 mg PO AC-TID PRN PRN Reason: Muscle Pain Dapagliflozin Propanediol [Farxiga] 10 mg PO DAILY Albuterol Inhaler [Ventolin Hfa Inhaler] 2 puff INHALATION RT-QID PRN PRN Reason: Shortness Of Breath Discharge Medication List lisinopriL [Zestril] 10 mg PO DAILY 11/13/13 [History] Fluticasone/Salmeterol [Advair 250-50 Diskus] 1 puff INHALATION RT-BID PRN 06/14/17 [History] Albuterol Inhaler [Ventolin Hfa Inhaler] 2 puff INHALATION RT-QID PRN 02/01/21 [History] Atorvastatin Calcium [Lipitor] 40 mg PO HS 02/01/21 [History] Celecoxib [CeleBREX] 200 mg PO DAILY 02/01/21 [History] Dapagliflozin Propanediol [Farxiga] 10 mg PO DAILY 02/01/21 [History] Desvenlafaxine Succinate [Pristiq] 100 mg PO DAILY 02/01/21 [History] HYDROcodone/APAP 5-325MG [[place] 5-325] 1 tab PO Q8HR PRN 3 Days #21 tab 02/01/21 [Rx] HYDROcodone/APAP 5-325MG [[place] 5] 1 each PO Q8HR PRN #21 tab 02/01/21 [Rx] Insulin Glargine,Hum.rec.anlog [Basaglar Kwikpen U-100] 120 unit SQ HS 02/01/21 [History] Pentoxifylline [TRENtal] 400 mg PO AC-TID PRN 02/01/21 [History] tiZANidine [Zanaflex] 8 mg PO HS 02/01/21 [History] Follow up Appointment(s)/Referral(s): Krishna Díaz DO [Doctor of Osteopathic Medicine] - 02/03/21 Robe Seaman MD [Primary Care Provider] - 1-2 days Activity/Diet/Wound Care/Special Instructions: Minimal activity. May get up out of bed to use the bathroom without a brace on. Does not need to have a brace on while in bed or while seated with a supportive chair. No bending. no twisting or lifting Discharge Disposition: HOME SELF-CARE
[2021-02-01 13:31] VITALS: BP 114/84; PULSE 101; RESP 20
[2021-02-01] MEDS ORDERED: lisinopriL 10 MG TAB PO SCH (21:00)
[2021-02-01] MEDS ORDERED: ATORVASTATIN 20 MG TAB PO SCH (21:00)
== END 2021-02-01 14:58 | disposition home or self-care (01) | DRG 552 ==
LOC: EC 22:27 → 4SSUR 23:06
PROVIDERS: ADMIT Internal Medicine; ATTEND Internal Medicine
DX: S32.021A Stable burst fracture of second lumbar vertebra, initial encounter for closed fracture (principal); Z20.822 Contact with and (suspected) exposure to COVID-19; D86.9 Sarcoidosis, unspecified; E11.42 Type 2 diabetes mellitus with diabetic polyneuropathy; M47.9 Spondylosis, unspecified; E78.5 Hyperlipidemia, unspecified; F41.9 Anxiety disorder, unspecified; G89.29 Other chronic pain; M19.90 Unspecified osteoarthritis, unspecified site; I10 Essential (primary) hypertension; J45.909 Unspecified asthma, uncomplicated; M06.9 Rheumatoid arthritis, unspecified; G43.909 Migraine, unspecified, not intractable, without status migrainosus; W17.89XA Other fall from one level to another, initial encounter; Z79.1 Long term (current) use of non-steroidal anti-inflammatories (NSAID); Z79.4 Long term (current) use of insulin; Z96.642 Presence of left artificial hip joint; Z79.899 Other long term (current) drug therapy
CPT/HCPCS: 80053; 83036; 85025; 85610; 87635; 99285

== ENCOUNTER → 2022-09-13 | Outpatient (CLI) | payer MEDICARE, OTHER ==
[2022-09-13 14:23] VITALS: BP 144/84; PULSE 80; RESP 18; TEMP 97.5
--- NOTE | 2022-09-15 14:08 | P.PAINPG ---
PQRS Measure Charge Sheet Comment: HISTORY OF PRESENT ILLNESS: 56 yr old male as a referral from Dr Bray presents today w severe and chronic LBP secondary to disc bulges, DDD, spondylosis and facet arthropathy without myelopathy for evaluation. Pt states pain level is provoked at 10/10 in intensity, constant, localized in the lower lumbar spine, dull in character w/o shooting pain. Pain is provoked by over activity and standing up from a supine position. Pain is alleviated by PT in 2020, heat, ice, topicals, repositioning and rest. PMH: Asthma, DM II, GERD, HTN, OA, RA, Sarcoidosis, Anxiety SH: No tobacco use, Occasional ETOH use, No illicit drug use. On SSD for years for LBP and L Hand Injuries. PSH: Cholecystectomy, L Hip Replacement, L Hand Surgery s/p Crush Injury, LESIs, BL RFA L2-L5 (2017) FH: Fa- Hodgkins Lymphoma. Mo- Leukemia All: NKDA Meds: See list REVIEW OF ORGAN SYSTEMS: CONSTITUTIONAL: No fevers or chills. No recent weight loss. NEUROLOGICAL: + numbness and tingling along the distal extremities. No seizure disorders or headaches. MUSCULOSKELETAL: + pain PSYCHIATRIC: Denies current depression or suicidal thoughts. Physical Examinations : Constitutional : Cooperative , not in acute distress . Neurologic : Cranial nerve II to XII intact. No focal neurological deficits. Psychiatric : alert & oriented x 3. Matching mood & appropriate affect. Judgment & insight intact. Musculoskeletal : Cervical Spine Motor strength in the deltoid and biceps: Normal right side. Normal Left side Motor strength biceps and the wrist extensors: Normal right side . Normal left side Motor strength in the triceps muscle: Normal right side. Normal left side Deep tendon reflexes: Normal at the biceps. Normal at Brachioradialis. Normal at triceps Vertebral body tenderness to deep palpation over Cervical facet loading test: positive bilaterally Spurling test: positive bilaterally Neck distraction test: positive bilaterally Matt sign: positive bilaterally Lumbar spine Motor strength lower extremities ,thigh and legs 5/5 Right side , 5/5 Left side Deep tendon reflexes : Normal Knee Jerk. Normal Ankle Jerk Vertebral body tenderness over L2 + Fabian Test positive over L1, l2 Lumbar facet Loading Test: positive Right / positive Left Range of motion of the lumbar spine Flexion 30 degrees, extension 10 degrees Straight Leg Raise test: Left/ Right positive at degree Kirsty test: positive right / positive left. Severe tenderness over the Sacroiliac joint on the Right / Left sides Gaenslen test: positive bilaterally Seated flexion test: positive bilaterally. Sacral spine : Severe tenderness over the Sacroiliac joint: right side / left side Range of motion: Flexion of the lumbar spine <60 degrees Range of motion: Extension of the lumbar spine <20 degrees Gaenslen's Test positive Pedro's Test positive Kirsty test: positive right side / left side Thigh Thrust Test Sacral Thrust Test Imaging: CT noncontrast of the lumbar spine from 07/08/22 reviewed Assessment/ Plan : Lumbar L2 Fracture, Lumbar DDD Recommendation of RICCARDO L1-L2. May need a series of injections for optimal pain relief. Risks, benefits of procedure discussed and patient verbalized understanding. Admits to aspirin or anti- coagulant use or medical history of diabetes. Protocol for discontinuation/ continuation of medications matthew procedure discussed. Minimal anesthesia provided, if clinically indicated, consisting of Versed and Fentanyl. All questions answered. I have spent greater than 30 minutes on patient care today. Dr Elam was available by phone for the evaluation of this patient. The time was used to review the medical records including relevant urine studies and Prescription history (MAPs), review of the available imaging, evaluation and examination of the patient, coordination of care with the medical staff and if applicable referring physicians, as well as creation of the medical record PQRS Narrative: Smoking Status Former smoker Narcotic Agreement Date Signed 04/04/18 Hx Alcohol Use (MH) Yes: OCCASIONAL. Home Medications: Ambulatory Orders lisinopriL [Zestril] 10 mg PO DAILY 11/13/13 Fluticasone Propion/Salmeterol [Advair 250-50 Diskus] 1 puff INHALATION RT-BID PRN 06/14/17 Albuterol Inhaler [Ventolin Hfa Inhaler] 2 puff INHALATION RT-QID PRN 02/01/21 Atorvastatin Calcium [Lipitor] 40 mg PO HS 02/01/21 Celecoxib [CeleBREX] 200 mg PO DAILY 02/01/21 Dapagliflozin Propanediol [Farxiga] 10 mg PO DAILY 02/01/21 Desvenlafaxine Succinate [Pristiq] 100 mg PO DAILY 02/01/21 HYDROcodone/APAP 5-325MG [[place] 5-325] 1 tab PO Q8HR PRN 3 Days #21 tab 02/01/21 HYDROcodone/APAP 5-325MG [[place] 5] 1 each PO Q8HR PRN #21 tab 02/01/21 Insulin Glargine,Hum.rec.anlog [Basaglar Kwikpen U-100] 120 unit SQ HS 02/01/21 Pentoxifylline [TRENtal] 400 mg PO AC-TID PRN 02/01/21 tiZANidine [Zanaflex] 8 mg PO HS 02/01/21 Controlled Substance Measures - Controlled Substance Measures Is patient prescribed a controlled substance at discharge?: No
== END ==
LOC: PNWHC3 12:19
PROVIDERS: ATTEND Specialist
DX: M54.50 Low back pain, unspecified (principal); I73.9 Peripheral vascular disease, unspecified; Z87.891 Personal history of nicotine dependence
CPT/HCPCS: 99211

== ENCOUNTER 2022-09-23 08:34 | Day surgery (SDC) | payer MEDICARE, OTHER ==
[2022-09-22 14:33] VITALS: BMI 33.0
[~2022-09-23 08:34] MED LIST changes: +LACTATED RINGERS 1,000 ML IV SCH; +LIDOCAINE 1% (10MG/ML) FOR IV START INTRADERMA PRN; -SODIUM CHLORIDE 0.9% 500 ML 500 ML IV SCH
[2022-09-23] MEDS ORDERED: LACTATED RINGERS 1,000 ML IV ONE (09:06)
[2022-09-23 09:20] LABS: Glucose,Whole Blood 221 mg/dL (70-110)
[2022-09-23 09:22] VITALS: TEMP 97.9
[2022-09-23] MEDS ORDERED: INSULIN ASPART (NovoLOG) 100 UNIT/ML VIAL SQ ONE (09:34)
[2022-09-23] MEDS ORDERED: MIDAZOLAM 2 MG/2 ML VIAL ONE (09:42)
[2022-09-23] MEDS ORDERED: IOPAMIDOL M200 10 ML VIAL ONE (09:42)
[2022-09-23] MEDS ORDERED: methylPREDNISolone ACETATE 40 MG/ML 1 ML VIAL ONE (09:42)
[2022-09-23] MEDS ORDERED: fentaNYL (PF) 50 MCG/ML 2 ML AMP ONE (09:42)
--- NOTE | 2022-09-23 09:51 | P.PCN ---
Date of Procedure: 09/23/22 Procedure(s) Performed: PREOPERATIVE DIAGNOSIS: 1- Lumbar Degenerative Disc Diseases 2-Lumbar spondylosis with Facet arthropathy without myelopathy. 3-lumbar compression fracture POSTOPERATIVE DIAGNOSIS: 1-lumbar degenerative disc disease. 2-lumbar spondylosis with facet arthropathy without myelopathy. 3-lumbar compression fracture PROCEDURE 1. Lumbar epidural steroid injection under fluoroscopic guidance at the L1-2 level. (Fluoroscopy imaging was available in radiology department) 2. Lumbar epidurogram. ANESTHESIA: moderate sedation with intravenous Versed 2 mg ,and fentanyle 50 Mcg Sedation start time : 941 Sedation end time : 947 EBL: Minimal PROCEDURE INDICATION: The patient with low back pain and radiculitis symptoms unresponsive to conservative treatment. Fluoroscopy was used to optimize v isualization of the needle placement and to maximize safety. PROCEDURE DESCRIPTION / TECHNIQUE: The patient was seen and identified in the preoperative area. Risks, benefits, complications including but not limited to infections ,bleeding ,allergic reaction to the medications ,nerve damage and not complete pain releife , and alternatives were discussed with the patient. The patient agreed to proceed with the procedure and signed the consent. IV was started, and vital signs were stable. Patient was taken to the OR and time out was completed. The patient was placed in the prone position on procedure table and a pillow was placed under the abdomen to reduce lumbar lordosis. The lumbosacral area was prepped and draped in the usual sterile fashion.ere closely monitored during the procedure. Conscious sedation was used during the procedure to decrease patients anxiety. Vital signs was monitered during the entire procedure. Using anterior-posterior fluoroscopy, the L1-2 interlaminar space was identified and the skin over this site was marked and then infiltrated with 1% lidocaine subcutaneously. Subsequently, a 20-gauge Tuohy epidural needle was inserted and advanced toward the epidural space using the ``Loss of resistance technique and guided by AP and lateral fluoroscopy. The correct needle position in the epidural space was verified with the injection of 2 mL of the water soluble contrast dye Isovue 200 contrast and observing an excellent epidurogram with the epidural spread of the dye, after negative aspiration for blood and CSF and in the absence of paresthesias. Again after negative aspiration, a 6 ml mixture containing 40 mg of Depo-medrol ( Preservetive Free ), and 2 ml of preservative free Normal Saline, and 2 ml of preservative free lidocaine 1% solution was injected and a washout of epidurogram was seen. Needle was withdrawn intact, skin was cleansed, and bandages were applied. COMPLICATIONS: None DISPOSITION / PLANS: The patient was placed in a supine position and transferred to the recovery area in a stable condition for observation. There was no evidence of lower extremity motor or sensory deficit after the procedure. Patient was discharged from the recovery room after meeting discharge criteria. Home discharge instructions were given to the patient by the staff. The patient was reexamined prior to discharge. The patient will schedule a follow up in the clinic in 2-4 weeks.
[2022-09-23] MEDS ORDERED: IV FLUID CONTINUATION 1,000 ML IV ONE (09:58)
[2022-09-23 10:01] VITALS: BP 114/78; PULSE 88; RESP 15
[2022-09-23 10:05] LABS: Glucose,Whole Blood 205 mg/dL (70-110)
--- NOTE | 2022-09-23 10:41 | FL ---
Intraoperative/procedural fluoroscopic services were provided. Total fluoroscopy time is 3.1 seconds with a total of 1 submitted images to PACS. Please see the operative/procedural note for further deta ils. DAP: [id number] mGym2
== END 2022-09-23 10:29 | disposition home or self-care (01) ==
LOC: ORPAIN 08:34
PROVIDERS: ATTEND Specialist
DX: M48.56XA Collapsed vertebra, not elsewhere classified, lumbar region, initial encounter for fracture (principal); M51.16 Intervertebral disc disorders with radiculopathy, lumbar region; M47.26 Other spondylosis with radiculopathy, lumbar region
CPT/HCPCS: 62323; J2250; J1030; J3010; Q9966

== ENCOUNTER → 2022-10-14 | Outpatient (CLI) | payer MEDICARE, OTHER ==
[2022-10-14 13:11] VITALS: BP 149/84; PULSE 79; RESP 18; TEMP 97.7
--- NOTE | 2022-10-14 15:03 | P.PAINPG ---
PQRS Measure Charge Sheet Comment: A 56 yr old male with a history of severe and chronic LBP secondary to lumbar DDD and spondylosis with facet arthropathy without myelopathy presents today for evaluation s/p RICCARDO L1-L2. Pt states he experienced 70 % pain relief x 3 days s/p procedure. Pain level is provoked at 8 /10 in intensity, constant, localized in the lumbar spine, dull/ achy in character w/o shooting pain. Pain is provoked by over activity. Pain is alleviated with PT in 2010, heat, ice, topical, repositioning and rest. Interventional pain procedures completed include RICCARDO L1-L2 Patient is currently on Icy Hot Patient denies any side effects of the medication(s), denies excessive drowsiness or sleepiness, denies suicidal ideation and reports that the current pain medication is helping to control the pain and improve activities of daily living. Patient denies any motor or sensory deficits. Patient denies any fever or night sweats, denies any change in the bowel movements or urination. Physical Examination: -Constitutional: Cooperative. Not in acute distress . - Neurologic: Cranial nerve II to XII intact. No focal neurological deficits. - Psychatric: Alert & oriented x 3. Matching mood & appropriate affect. Judgment and insight intact. - Musculoskeletal: Cervical spine: Muscle bulk/ tone/ strength in the bilateral upper extremities normal Vertebral body tenderness to palpation over Spurling test positive Distraction test positive Facet loading test positive TTP Thoracic spine Muscle bulk / tone/ strength in the bilateral paraspinal muscles normal Vertebral body tender to palpation over Facet loading test positive TTP Lumbar spine: Motor bulk/ tone/ strength lower extremities , thigh and legs : 5/5 Deep tendon reflexes : Normal Knee Jerk. Normal Ankle Jerk . Vertebral body tenderness to palpation over Fabian Test positive Lumbar Facet Loading Test positive Straight Leg Raise: positive at 30 degrees right side/ left side Gaenslen's Test positive Sacral spine : Severe tenderness over the Sacroiliac joint: right side / left side Range of motion: Flexion of the lumbar spine <60 degrees Range of motion: Extension of the lumbar spine <20 degrees Gaenslen's Test positive right side / left side Kirsty test: positive right side / left side Thigh Thrust Test positive right side / left side Sacral Thrust Test positive right side / left side Assessment and plan: Chronic LBP secondary to lumbar DDD, spondylosis with facet arthropathy without myelopathy Recommendation of Pt x 6 wks Dx: M51.36. All questions answered. I have spent less than 30 minutes on patient care today. Dr Elam was available by phone for the evaluation of this patient. The time was used to review the medical records including relevant urine studies and Prescription history (MAPs), review of the available imaging, evaluation and examination of the patient, coordination of care with the medical staff and if applicable referring physicians, as well as creation of the medical record PQRS Narrative: Smoking Status Former smoker Narcotic Agreement Date Signed 04/04/18 Hx Alcohol Use (MH) Yes: OCCASIONAL. Home Medications: Ambulatory Orders lisinopriL [Zestril] 10 mg PO DAILY 11/13/13 Fluticasone Propion/Salmeterol [Advair 250-50 Diskus] 1 puff INHALATION RT-BID PRN 06/14/17 Albuterol Inhaler [Ventolin Hfa Inhaler] 2 puff INHALATION RT-QID PRN 02/01/21 Atorvastatin Calcium [Lipitor] 40 mg PO HS 02/01/21 Dapagliflozin Propanediol [Farxiga] 10 mg PO DAILY 02/01/21 Desvenlafaxine Succinate [Pristiq] 120 mg PO DAILY 02/01/21 HYDROcodone/APAP 5-325MG [[place] 5-325] 1 tab PO Q8HR PRN 3 Days #21 tab 02/01/21 Insulin Glargine,Hum.rec.anlog [Basaglar Kwikpen U-100] 120 unit SQ HS 02/01/21 Pentoxifylline [TRENtal] 400 mg PO TID 02/01/21 tiZANidine [Zanaflex] 8 mg PO HS 02/01/21 Trulicity Unk Dose 1 dose SQ Q7D 09/22/22 Controlled Substance Measures - Controlled Substance Measures Is patient prescribed a controlled substance at discharge?: No
== END ==
LOC: PNWHC3 12:37
PROVIDERS: ATTEND Specialist
DX: M51.36 Other intervertebral disc degeneration, lumbar region (principal); M47.816 Spondylosis without myelopathy or radiculopathy, lumbar region; G89.29 Other chronic pain; Z87.891 Personal history of nicotine dependence
CPT/HCPCS: 99211

== ENCOUNTER → 2023-03-24 | Outpatient (CLI) | payer MEDICARE, OTHER ==
[2023-03-24 16:20] LABS: Basophils # (A) 0.05 X 10*3/uL (0.00-0.10); Basophils % (A) 0.8 %; Eosinophils # (A) 0.14 X 10*3/uL (0.04-0.35); Eosinophils % (A) 2.4 %; HCT 45.9 % (39.6-50.0); HGB 15.5 g/dL (13.0-17.0); Lymphocytes # (A) 0.99 X 10*3/uL (0.90-5.00); Lymphocytes % (A) 16.7 %; MCH 28.8 pg (27.0-32.0); MCHC 33.8 g/dL (32.0-37.0); MCV 85.2 FL (80.0-97.0); Mean Platelet Volume 10.8 FL (9.5-12.2); Monocytes # (A) 0.67 X 10*3/uL (0.20-1.00); Monocytes % (A) 11.3 %; NRBC Per 100 WBC 0 X 10*3/uL (0.00-0.01); Neutrophils # (A) 4.06 X 10*3/uL (1.80-7.70); Neutrophils % (A) 68.6 %; Platelet Count 174 X 10*3/uL (140-440); RBC 5.39 X 10*6/uL (4.40-5.60); RDW 13.2 % (11.5-14.5); WBC 5.92 X 10*3/uL (4.50-10.00)
[2023-03-24 16:40] LABS: BUN/Creat Ratio 12.55 Ratio (12.00-20.00); Blood Urea Nitrogen 13.8 mg/dL (9.0-27.0); Chloride 103 mmol/L (96-109); Glucose 149 mg/dL (70-110); Potassium 4.9 mmol/L (3.5-5.5); Sodium 141 mmol/L (135-145)
[2023-03-24 16:41] LABS: ALT 66 U/L (10-49); AST 30 U/L (14-35); Albumin 4.6 g/dL (3.8-4.9); Alkaline Phosphatase 127 U/L (41-126); Calcium 9.8 mg/dL (8.7-10.3); Carbon Dioxide 26.4 mmol/L (21.6-31.8); Globulin 2.7 g/dL (1.6-3.3); T4, Free (Free Thyroxine) 1.02 ng/dL (0.80-1.80); Total Bilirubin 0.6 mg/dL (0.3-1.2); Total Protein 7.3 g/dL (6.2-8.2)
[2023-03-24 17:53] LABS: Erythrocyte Sedimentation Rate 8 mm/Hr (0-20)
== END | disposition home or self-care (01) ==
LOC: LABWHC1 10:03
PROVIDERS: ATTEND Internal Medicine
DX: D86.9 Sarcoidosis, unspecified (principal); R06.09 Other forms of dyspnea
CPT/HCPCS: 36415; 80053; 82164; 84439; 84443; 85025; 85652

== ENCOUNTER → 2023-03-29 | Outpatient (CLI) | payer MEDICARE, OTHER ==
[2023-03-29 15:23] LABS: African American GFR (CKD) >90 (>60 ml/min/1.73 sqM); Blood Urea Nitrogen 16 mg/dL (9-20); Non-African American GFR(CKD) >90 (>60 ml/min/1.73 sqM)
--- NOTE | 2023-03-30 11:17 | CA ---
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 I27.20 PUL HTN Cardiac Hx: Technical Quality: Technically difficult study Contrast 1: Definity Total Dose (mL): 5 Contrast 2: Total Dose (mL): MEASUREMENTS (Male / Female) Normal Values 2D ECHO LV Diastolic Diameter PLAX 4.5 cm 4.2 - 5.9 / 3.9 - 5.3 cm LV Systolic Diameter PLAX 2.8 cm IVS Diastolic Thickness 0.9 cm 0.6 - 1.0 / 0.6 - 0.9 cm LVPW Diastolic Thickness 0.9 cm 0.6 - 1.0 / 0.6 - 0.9 cm LV Relative Wall Thickness 0.4 LVOT Diameter 2.0 cm Ascending Aorta Diameter 3.4 cm M-MODE Aortic Root Diameter MM 3.1 cm LA Systolic Diameter MM 4.0 cm LA Ao Ratio MM 1.3 AV Cusp Separation MM 2.2 cm DOPPLER AV Peak Velocity 103.4 cm/s AV Peak Gradient 4.3 mmHg AV Mean Velocity 79.5 cm/s AV Mean Gradient 2.7 mmHg AV Velocity Time Integral 18.0 cm LVOT Peak Velocity 90.6 cm/s LVOT Peak Gradient 3.3 mmHg LVOT Velocity Time Integral 17.0 cm LVOT Stroke Volume 52.9 cm??? LVOT Stroke Volume Index 24.6 ml/m??? LVOT Cardiac Index 1702.5 cm???/min???m??? AV Area Cont Eq vti 2.9 cm??? AV Area Cont Eq pk 2.7 cm??? Mitral E Point Velocity 68.8 cm/s Mitral A Point Velocity 58.9 cm/s Mitral E to A Ratio 1.2 MV Deceleration Time 185.5 ms LV E' Lateral Velocity 10.5 cm/s Mitral E to LV E' Lateral Ratio 6.5 LV E' Septal Velocity 7.5 cm/s Mitral E to LV E' Septal Ratio 9.1 TR Peak Velocity 185.2 cm/s TR Peak Gradient 13.7 mmHg Right Atrial Pressure 3.0 mmHg Pulmonary Artery Systolic Pressu 16.7 mmHg Right Ventricular Systolic Press 16.7 mmHg FINDINGS Left Ventricle Left ventricular wall thickness normal. Left ventricular cavity size normal. Normal left ventricular systolic function with no obvious regional wall motion abnormalities. Left ventricular ejection fraction is estimated at 55-60%. Right Ventricle Mild right ventricular dilatation. Right ventricular systolic pressure within normal limits. Right Atrium Normal right atrial size. Left Atrium Normal left atrial size. Mitral Valve Structurally normal mitral valve. Trace to mild mitral regurgitation. Aortic Valve Trileaflet aortic valve. No aortic regurgitation. Tricuspid Valve Structurally normal tricuspid valve. Trace tricuspid regurgitation. Pulmonic Valve Pulmonic valve not well visualized. Pericardium No pericardial effusion. Aorta Normal size aortic root and proximal ascending aorta. CONCLUSIONS Technically difficult study for interpretation Normal LV systolic function Previewed by: Dr. Dejuan Mijares MD (Electronically Signed) Final Date: 30 March 2023 11:17
--- NOTE | 2023-04-03 21:40 | CT ---
EXAMINATION TYPE: CT chest w con DATE OF EXAM: 03/29/2023 COMPARISON: Radiograph 03/24/2023 HISTORY: 57-year-old male D8 60, sarcoidosis TECHNIQUE: Contiguous axial scanning of the chest after the administration of 100 mL of Isovue 300. Coronal/sagittal reconstructions performed. CT DLP: 483.6mGycm. Automatic exposure control utilized for a dose reduction. FINDINGS: Right anterior chest wall injection port with catheter tip at the mid to lower SVC. Heart normal size without pericardial effusion. Aorta normal caliber with conventional arch vessel branching anatomy. There is mediastinal and hilar lymphadenopathy with some of the largest nodes as follows: * Precarinal lymph node node mildly enlarged 1.1 cm. * Right hilar lymph node 1.8 cm. * Subcarinal node 1.8 cm. * 1.8 cm left hilar lymph node. * Bronchial lymph nodes on either side measuring up to 1.3 cm. Mild emphysematous changes in the upper lungs. Mild diffuse bronchial wall thickening. No perilymphatic nodularity or mu thickening of the bronchovascular bundles is seen. 9 mm right mid lung pulmonary nodule. 7 mm left mid lung pulmonary nodule. Mild dependent atelectasis in the lungs. No consolidation or pleural effusion. Visualized upper abdomen shows cholecystectomy clips. Bones: DISH throughout the mid and lower thoracic spine. IMPRESSION: 1. COPD with mild emphysema. 2. Mediastinal and hilar adenopathy measuring up to 1.8 cm may reflect patient's reported underlying sarcoid. Short interval follow-up to ensure stability/resolution. 3. A couple pulmonary nodules measuring 9 and 7 mm. Reassess these with a 3-6 month follow-up to ensu re stability.
== END | disposition home or self-care (01) ==
LOC: RADECHMAIN 14:44
PROVIDERS: ATTEND Internal Medicine
DX: D86.9 Sarcoidosis, unspecified (principal); J43.9 Emphysema, unspecified; I27.20 Pulmonary hypertension, unspecified; D57.00 Hb-SS disease with crisis, unspecified; J44.9 Chronic obstructive pulmonary disease, unspecified; R59.0 Localized enlarged lymph nodes; R91.8 Other nonspecific abnormal finding of lung field
CPT/HCPCS: 82565; 84520; 71260; 36415; C8929; Q9957; Q9967; 93306

== ENCOUNTER → 2024-01-04 | Outpatient (CLI) | payer MEDICARE, OTHER ==
[2024-01-04 08:14] LABS: African American GFR (CKD) 83 (>60 ml/min/1.73 sqM); Blood Urea Nitrogen 22 mg/dL (9-20); Non-African American GFR(CKD) 72 (>60 ml/min/1.73 sqM)
--- NOTE | 2024-01-07 16:08 | CT ---
EXAMINATION TYPE: CT chest w con DATE OF EXAM: 01/04/2024 COMPARISON: 03/29/2023 HISTORY: 58-year-old male D860, sarcoidosis TECHNIQUE: Contiguous axial scanning of the chest after the administration of 100 mL of Isovue 300. Coronal/sagittal reconstructions performed. CT DLP: 523.5mGycm. Automatic exposure control utilized for a dose reduction. FINDINGS: Heart normal size without pericardial effusion. LAD coronary artery calcifications are present. Ectatic aorta 3.6 cm. In metatarsus origin anatomy. Scattered nonenlarged and borderline to mildly enlarged mediastinal and hilar lymph nodes. Largest me asuring 1.1 cm precarinal, 1.7 cm right hilar, 1.6 cm subcarinal, and 1.7 cm left hilum. Additional r ight-sided bronchial lymph nodes are present measuring up to 1.2 cm similar as well. Right anterior chest wall injection port with catheter tip within the mid SVC. Mild subpleural groundglass in the lower lobes likely atelectasis. A few scattered pulmonary nodules measuring up to 9 mm on the right remain unchanged. There is background mild emphysematous change. Mi ld scattered reticular changes as well. Visualized upper abdomen shows cholecystectomy clips. Bones: [facility] throughout the mid and lower thoracic spine with scattered [id number] degenerative disc disease. IMPRESSION: 1. COPD with mild emphysema and scattered mild interstitial fibrosis. 2. Numerous nonenlarged and borderline to mildly enlarged mediastinal and hilar lymph nodes measuring up to 1.7 cm relatively unchanged and in keeping with patient's history of sarcoidosis. 3. Scattered pulmonary nodules measuring up to 9 mm remain unchanged. Consider additional one-year mcqueen rveillance follow-up. 4. LAD coronary artery calcifications. [facility] 01/07/2024 3:46 PM [facility], Workstation [id number], 01/07/2024 4:06 PM
== END | disposition home or self-care (01) ==
LOC: RADCTMAIN 07:40
PROVIDERS: ATTEND Internal Medicine
DX: D86.0 Sarcoidosis of lung
CPT/HCPCS: 36415; 71260; 82565; 84520

== ENCOUNTER → 2024-05-10 | Day surgery (SDC) | payer MEDICARE, OTHER ==
[~2024-05-10] MED LIST changes: +ALPRAZolam 0.25 MG TAB PO PRN; +ALPRAZolam 0.5 MG TAB PO PRN; +ASPIRIN 325 MG TAB PO ONE; +ASPIRIN 81 MG PO SCH; +ATORVASTATIN 80 MG TAB PO SCH; -LACTATED RINGERS 1,000 ML IV SCH; -LIDOCAINE 1% (10MG/ML) FOR IV START INTRADERMA PRN; +NITROGLYCERIN SL TABS 0.4 MG TAB SUBLINGUAL PRN; +RX INFO: IV CONTRAST WAS GIVEN 1 EACH MISC MISCELLANE PRN; +SODIUM CHLORIDE 0.9% 1,000 ML IV SCH; +lisinopriL 10 MG TAB PO SCH
[2024-05-10] MEDS: IV FLUID CONTINUATION 1,000 ML IV ONE (07:40)
[2024-05-10 07:46] LABS: Glucose,Whole Blood 291 mg/dL (70-110)
[2024-05-10] MEDS: SODIUM CHLORIDE 0.9% 1,000 ML in EMPTY BAG 1 BAG IV SCH (07:48)
[2024-05-10] MEDS: INSULIN ASPART (NovoLOG) 100 UNIT/ML VIAL SQ ONE ×2 (07:59→10:00)
[2024-05-10 08:26] VITALS: TEMP 97.1
[2024-05-10] MEDS: fentaNYL (PF) 50 MCG/ML 2 ML AMP IVP ONE (09:07)
[2024-05-10] MEDS: LIDOCAINE 1% INJ 10MG/ML (20 ML MDV) SQ ONE (09:11)
[2024-05-10] MEDS: VERAPAMIL SYRINGE (5 MG/10 ML) INTRAARTER ONE (09:12)
[2024-05-10] MEDS: HEPARIN SODIUM 1,000 UN/ML (10ML VL) IVP ONE (09:16)
[2024-05-10] MEDS: HEPARIN SODIUM,PORCINE (1 ML) 2,500 UNIT in SODIUM CHLORIDE 0.9% 250 ML IRRIGATION PRN (09:36)
[2024-05-10] MEDS: HEPARIN SODIUM,PORCINE 10,000 UNIT in SODIUM CHLORIDE 0.9% 1,000 ML IRRIGATION PRN (09:36)
--- NOTE | 2024-05-10 09:39 | P.CARDCATH ---
Date of Procedure: 05/10/24 Description of Procedure: Cardiac Catheterization: The patient is a 58-year-old male with known history of hypertension, hyperlipidemia, diabetes mellitus who has been complaining of progressive dyspnea on exertion and had an abnormal MPI with evidence of calcification of his coronary arteries on his CAT scan. Recommendations were made regarding cardiac catheterization, the risks and the complications were discussed with the patient who is in full understanding and agreement. Procedure Description: Patient was brought to labor standards director in fasting semi-sedated state after receiving Fentanyl and Benadryl achieiving moderate conscious sedated state. Using Xylocaine Anesthesia and modified Seldinger technique, a 6-St Helenian sheath was introduced in the right radial artery . Subsequently, selective coronary angiography was performed using a 5-St Helenian 3.5 bend Adonis catheter. Multiple views of the coronary artery including hemiaxial views were obtained. The 5 [place] Helen[place] pigtail catheter was used to cross the aortic valve and LVEDP was calculated. Following that, catheter and sheath were removed. Hemostasis was obtained with deployment of vascular band . There was no immediate complication. Patient was returned to room in stable condition. Of note, the patient received a total of 5000 units of intravenous heparin as well as intra-arterial verapamil. Findings: Fluoroscopy: Calcifications in the LAD was noted Left main: This is a large size vessel, bifurcating into LAD and left circumflex, left main has no obstructive disease LAD: This is a large size vessel, tapers down in the distal third, gives rise to a large diagonal branch proximally. The LAD proximally has mild plaque of 10 to 20% with no high-grade stenosis Left circumflex: This is a large nondominant vessel, giving rise to a large obtuse marginal branch, the left circumflex and its branches have no obstructive disease RCA: This is a large dominant vessel that has a superior takeoff, and has a 10 to 20% plaque in the midsegment. It bifurcates distally to PDA and PLV. The rest of the vessel has no high-grade stenosis Left Ventriculogram: Not performed Hemodynamics: There was no gradient across aortic valve, LVEDP was 16-20 mmHg Conclusion: 1. Calcified proximal LAD 2. Mild obstructive disease in the LAD and the right coronary artery 3. Right dominance Recommendations: I have recommended to continue medical therapy with the aggressive coronary risks modification initiated I see no evidence of significant obstructive disease to explain his symptoms. The findings and the recommendations were discussed with the patient and the family and they were in full understanding and agreement. Duration of sedation is 14 minutes.
[2024-05-10 09:51] LABS: Glucose,Whole Blood 251 mg/dL (70-110)
[2024-05-10 18:03] VITALS: PULSE 80; RESP 16
[2024-05-10 18:04] VITALS: BP 132/77
== END | disposition home or self-care (01) ==
LOC: CATHCVL 07:05
PROVIDERS: ATTEND Internal Medicine Interventional Cardiology
DX: I25.10 Atherosclerotic heart disease of native coronary artery without angina pectoris (principal); I10 Essential (primary) hypertension; E11.9 Type 2 diabetes mellitus without complications; D69.6 Thrombocytopenia, unspecified; D86.0 Sarcoidosis of lung; F17.210 Nicotine dependence, cigarettes, uncomplicated; E78.2 Mixed hyperlipidemia; Z79.02 Long term (current) use of antithrombotics/antiplatelets; Z79.899 Other long term (current) drug therapy
CPT/HCPCS: 93458; C1769 ×2; C1894; J1644 ×3; J2003; J3010